=== PATIENT | female | born 1945 | race Caucasian/White ===

== ENCOUNTER 2016-11-04 15:20 | Inpatient (IN) | payer OTHER ==
[~2016-11-04] VITALS: Ht 154.9 cm; Wt 52.2 kg
[2016-11-04] VITALS (13 sets, daily range): BP systolic 76–133; BP diastolic 43–104
--- NOTE | ~2016-11-04 | CNG ---
[facility] [address] [place] [address] CYTO-NONGYN REPORT PROCEDURE Name: ROSEANNA MAJANOEN Room #: 243-P ADM IN M.R.#: [id number] Admission: 11/04/16 Date of : 45 Discharge: Report #: [id number] Path Case #: [id number] CYTOPATHOLOGY REPORT COLLECTION DATE: 11/12/2016 RECEIVED DATE: 11/12/2016 SUBMITTING PHYS: Dr. Evie Winslow OTHER PHYS: Dr. Stew Sheth CLINICAL HISTORY: SOA. SPECIMEN(S) RECEIVED: A.Pleural fluid * * * * * * * * * * * * FINAL DIAGNOSIS: A. Pleural fluid: - No malignant cells identified. Scattered highly reactive mesothelial cells are identified. PATHOLOGIST: Negrita Spann M.D. REPORT ELECTRONICALLY SIGNED BY: Negrita Spann M.D. DATE/TIME: 11/15/2016 16:15 * * * * * * * * * * * * GROSS PATHOLOGY: A. Pleural fluid: The specimen is submitted unfixed, labeled "Roseanna Majano". Received by the Cytology Department is 15 mL of cloudy yellow fluid. One ThinPrep slide and a cell block were prepared. (clt 11.12.2016) STENCIL MACHINE OPERATOR(S): GIULIANA Keene(ASCP) INITIAL CPT CODE(S): A; 21432, 71185 Professional services performed by [facility] at [place] [address] , [place] [address] Technical services performed by [facility] at [address] [place] [address]., [address], [place] [address]. [facility] [address] [place] [address], [address] [place] [address] PHONE: [phone] [facility] [address] [place] [address] CYTO-NONGYN REPORT PROCEDURE Name: ROSEANNA MAJANO Room #: 243-P ADM IN M.R.#: [id number] Admission: 11/04/16 Date of : 45 Discharge: Report #: [id number] Path Case #: [id number] DIRECTOR: Raffy Nickerson M.D. * * * END OF REPORT * * *
--- NOTE | ~2016-11-04 | HC ---
[facility] [place] [address] CONSULTATION Name: HAYDEE MAJANO Room #: 243-P ADM IN M.R.#: [id number] Admission: 11/04/16 Attend Phys: Stew Sheth MD Discharge: Date of : 45 Report #: [id number] THIS REPORT FOR: //name// CC: Evie Sheth DATE OF SERVICE: 11/04/2016 REASON FOR CONSULTATION: Pneumonia. IMPRESSION: 1. Community-acquired pneumonia. 2. Left greater than right effusion. 3. Constipation. 4. Lactic acidosis. 5. Acute kidney injury. 6. Protein-calorie malnutrition. 7. Normocytic anemia. 8. History of petit mal seizures. 9. History of osteoporosis. 10. Hyperlipidemia. 11. Incontinence. 12. Gastroesophageal reflux disease. 13. Depression. HOME MEDICATIONS: Included paroxetine, oxybutynin, Estrace and Crestor and old chart. PLAN: 1. ICU protocol. 2. Sepsis protocol. 3. PICC line placement and monitor pressures. 4. Tap effusion tonight. 5. Aerosol therapy. 6. Treat constipation. HISTORY OF PRESENT ILLNESS: This is a very pleasant 71-year-old female, was watching and window was opened and developed chills, went to the [employer] on Tuesday, too busy to see her and came in today. [place] she had a sore throat, decreased appetite, abdominal pain and developed a shortness of breath. No definite chest pains or palpitations. Positive fever. No definite headache. PAST MEDICAL HISTORY: GERD and osteoporosis. PAST SURGICAL HISTORY: Include hysterectomy, right knee surgery. [facility] [address] [place] [address] CONSULTATION Name: HAYDEE MAJANO Room #: 243-P ADM IN M.R.#: [id number] Admission: 11/04/16 Attend Phys: Stew Sheth MD Discharge: Date of : 45 Report #: [id number] MEDICATIONS: Carbamazepine, omeprazole and oxybutynin. ALLERGIES: To DARVON. SOCIAL HISTORY: Negative tobacco. Occasional ETOH. . REVIEW OF SYSTEMS: Headache, decreased appetite and nausea. No vomiting. Constipation and shortness of breath. No hemoptysis, hematemesis or hematochezia. Positive GERD. Positive muscle aches. No neck pain. PHYSICAL EXAMINATION: VITAL SIGNS: Temperature 97.9, pulse 83, respirations 20 and BP 83/50. EYES: Negative icterus. NECK: Trachea midline. LUNGS: Decreased breath sounds, left greater than right. HEART: Regular. ABDOMEN: Bowel sounds present, tender left lower quadrant. EXTREMITIES: Showed no clubbing, cyanosis or edema. NEUROLOGICAL: She is alert and oriented and has been remembered me from the past. RADIOLOGICAL DATA: Chest x-ray showed left greater than right infiltrate and effusion. CT abdomen showed large amount of stool in the proximal colon, left base densely opacified. LABORATORY DATA: White count 7.4, hemoglobin 11.6 and platelets 172. BUN 57 and creatinine 22. Calcium 7.9, albumin 3.0 and lactate 26. Influenza was negative. ABG 7.38, pCO2 of 31, pO2 72.5 and bicarbonate 18. INR 1.2 and PTT 31.5. <ELECTRONICALLY SIGNED> By: Evie Winslow MD 11/07/16 2147 1854 0733 Evie Winslow MD /nt
--- NOTE | ~2016-11-04 | O ---
[facility] [place] [address] OPERATIVE REPORT Name: HAYDEE MAJANO Room #: 243-P ADM IN M.R.#: [id number] Admission: 11/04/16 Attend Phys: Stew Sheth MD Discharge: Date of : 45 Report #: [id number] THIS REPORT FOR: //name// CC: Evie Sheth PROCEDURE: Emergent intubation. CLINICAL HISTORY: A 71-year-old white female with severe pneumonia, now with worsening respiratory distress and hypoxia. DESCRIPTION OF PROCEDURE: I was called to see the patient with mental status change, somnolence, severe tachypnea and hypoxia. The patient has been on noninvasive positive pressure ventilation for the last several days for severe pneumonia. She is not getting any better. She is tachypneic, appears fatigued. It was elected to proceed with intubation. DESCRIPTION OF PROCEDURE: The patient was given approximately 5 mL of Diprivan. A slide scope was then utilized to visualize the vocal cords. A 7.5-mm ET tube was then placed with a stylet without difficulty. The ET tube was secured at approximately 22 cm at the lip. Followup chest x-ray shows ET tube at the daisy. ET tube was withdrawn . Otherwise, the patient tolerated the procedure well. Her vital signs and blood pressure remained within normal range. <ELECTRONICALLY SIGNED> By: Derik Joy MD 11/09/16 1146 1254 1343 MD andreia Song
--- NOTE | ~2016-11-04 | O ---
[facility] [place] [address] OPERATIVE REPORT Name: HAYDEE MAJANO Room #: 243-P ADM IN M.R.#: [id number] Admission: 11/04/16 Attend Phys: Stew Sheth MD Discharge: Date of : 45 Report #: [id number] THIS REPORT FOR: //name// CC: Evie Sheth DATE OF SERVICE: 11/22/2016 PROCEDURE: Tracheostomy, CPT code 95371. PREOPERATIVE DIAGNOSES: 1. Pneumonia. 2. Respiratory failure with failure to wean from the vent. POSTOPERATIVE DIAGNOSES: 1. Pneumonia. 2. Respiratory failure with failure to wean from the vent. SURGEON: Barney Solorio MD. ANESTHESIA: General. ESTIMATED BLOOD LOSS: 5 mL. COMPLICATIONS: None. SPECIMENS: None. FINDINGS: The patient was found to have normal tracheal anatomy. INDICATIONS FOR PROCEDURE: The patient is a 71-year-old female who has a history of pneumonia and respiratory failure requiring mechanical ventilation. She has been unable to wean from the vent and a tracheostomy was desired because of her prolonged intubation. DESCRIPTION OF PROCEDURE: After informed consent was obtained, the patient was taken to the operating room and placed in the supine position. She underwent general anesthesia. She was prepped and draped in the usual fashion. A timeout was performed. The correct patient and procedure were identified. A 2 cm vertical incision was marked from the level of the cricoid in the midline and this was infiltrated with 1.5 mL of 1% lidocaine with 1:100,000 epinephrine. Once time was given for vasoconstriction to take effect, the skin was incised with a 15 blade scalpel. A subcutaneous fat was grasped with an Allis clamp and this was dissected free of the fascia using Bovie cautery. The fascia was then divided in the midline with the Bovie cautery and the strap muscles were also divided in the midline and retracted laterally. The isthmus was elevated using [facility] [address] [place] [address] OPERATIVE REPORT Name: HAYDEE MAJANO Room #: [facility]-P ADM IN M.R.#: [id number] Admission: 11/04/16 Attend Phys: Stew Sheth MD Discharge: Date of : 45 Report #: [id number] a hemostat and this was divided in the midline using Bovie cautery. This exposed the anterior tracheal wall. An incision was marked between the second and third tracheal rings. The trachea was then incised using 11 blade scalpel and an inferiorly based Rodolfo flap was developed using the 11 blade and heavy curved Delarosa scissors. Following this, anesthesia withdrew the endotracheal tube and a size 6 DCT tracheostomy tube was placed into the trachea. The patient was hooked up to the circuit and end tidal CO2s were confirmed. Hemostasis was then achieved with Bovie cautery and also packing with Surgicel. A trach was then secured with 2-0 nylon sutures, 1 in each corner and trach ties were placed. The patient was then turned back over the anesthesia service. She was successfully transferred back to the ICU in stable condition. All counts were reported as correct and there were no complications during the procedure. DISPOSITION: The patient will be returned to the ICU for trach care and weaning. By: 1148 1239 Barney Solorio MD /nt
--- NOTE | ~2016-11-04 | HC ---
[facility] [place] [address] CONSULTATION Name: HAYDEE MAJANO Room #: 243-P [facility] IN M.R.#: [id number] Admission: 11/04/16 Attend Phys: Stew Sheth MD Discharge: Date of : 45 Report #: [id number] THIS REPORT FOR: //name// CC: Evie Sheth REASON FOR CONSULTATION: I was asked to evaluate concerning pneumonia and septic shock. HISTORY OF PRESENT ILLNESS: The patient was a 71-year-old who had the acute onset of rigors, fever, left chest pain with onset 3 days ago. She continued to have pain with minimal cough, no sputum production. She presented to a walk-in clinic yesterday and was sent to the Emergency Room. She had temperature of 103 degrees. REVIEW OF SYSTEMS: Notes no headache, pharyngitis symptoms, sinusitis symptoms, nausea, vomiting, diarrhea, dysuria, frequency, flank pain, rash, arthritis. PAST MEDICAL HISTORY: Gastroesophageal reflux, osteoporosis, hysterectomy, right knee surgery, seizure disorder, depression, stress urge incontinence, hyperlipidemia. ALLERGIES: PREMARIN, DERMABOND. MEDICATIONS: Tegretol, Crestor, esterase, omeprazole, oxybutynin, paroxetine. The patient states no antibiotics prior to her admission, although on her ER report, there was prednisone and cephalexin identified. FAMILY HISTORY: Noncontributory. SOCIAL HISTORY: Nonsmoker, no significant alcohol intake. She had been vaccinated for influenza and pneumonia. REVIEW OF SYSTEMS: As noted above. PHYSICAL EXAMINATION: VITAL SIGNS: Currently afebrile, blood pressure stable on low dose Levophed. CVP was 9-10 range. She is on 4 liters of oxygen per nasal cannula. GENERAL: She was alert and cooperative. She was able to sit up in bed with minimal assist. HEENT: Unremarkable. NECK: Supple. No adenopathy. No rash or decubiti. LUNGS: Consolidation in the left mid chest and below. Crackles in the right base as well. No rub. CARDIOVASCULAR: Heart was regular, without appreciable murmur, gallop or rub. ABDOMEN: Soft, nontender, no hepatosplenomegaly or mass appreciated. EXTREMITIES: Unremarkable. [facility] [address] [place] [address] CONSULTATION Name: HAYDEE MAJANO Room #: [address] [place] [address] IN M.R.#: [id number] Admission: 11/04/16 Attend Phys: Stew Sheth MD Discharge: Date of : 45 Report #: [id number] NEUROLOGIC: Normal. LABORATORY STUDIES: Sodium 134, potassium 3.8, bicarbonate of 19, creatinine 1.6, lactate 1.6, AST 48, alkaline phosphatase 36, albumin of 2.3. MRSA screen negative. Hemoglobin 10.2, white count 10.8 with 25% bands, platelet count 135,000. Urinalysis 2+ protein, moderate bacteria. ABGs on 4 liters showed a pO2 of 65, pCO2 of 28, pH 7.41, CT scan of the abdomen showed consolidation in the left lung with associated effusion. An attempt at needle aspiration had failed last evening. Urine antigen positive for Streptococcus pneumoniae. Blood cultures are pending. Influenza antigen negative. No sputum cultures have been obtained for the patient is unable to expectorate. IMPRESSION: Community-acquired pneumonia. I suspect Streptococcus pneumoniae, most likely with consolidated lung and I suspect pruritus with either a parapneumonic effusion or empyema. Onset of her symptoms was 4 days ago. Now with septic shock, acute renal failure. She has an associated anemia and left shift on her white count. PLAN: Would recommend continuing IV antibiotic therapy, full ICU support. She is going to have a dedicated CT scan of the chest and we will reevaluate the left chest process. I have discussed with nursing staff and pulmonary medicine. <ELECTRONICALLY SIGNED> By: Prashanth Crum MD 11/08/16 0904 0942 1334 Prashanth Crum MD /nt
--- NOTE | ~2016-11-04 | 2DMMODE ---
[facility] [place] [address] 2 D/M-MODE ECHOCARDIOGRAM Name: HAYDEE MAJANO Room #: 243-P [facility] IN M.R.#: [id number] Admission: 11/04/16 Attend Phys: Stew Sheth, Discharge: Date of : 45 Date of Service: 11/05/16 1359 Report #: [id number] THIS REPORT FOR: //name// APPROVED REPORT Study performed: 11/05/2016 13:10:48 EXAM: Comprehensive 2D, Doppler, and color-flow Echocardiogram Patient Location: Bedside Room #: 243 Blood Pressure: 97/44 mmHg HR: 89 bpm Rhythm: NSR Other Information Study Quality: Adequate Indications Dyspnea 2D Dimensions RVDd: 39.35 mm LVEF(%): 66.81 (>50%) IVSd: 9.16 (7-11mm) LVOT Diam: 18.76 (18-24mm) LVDd: 42.91 mm PWd: 7.79 (7-11mm) Ascending Ao: 28.73 (22-36mm) LVDs: 27.17 (25-40mm) Aortic Root: 30.84 mm Lang's LVEF: 66.81 % Volumes Left Atrial Volume (Systole) Single Plane 4CH: 63.75 mL Single Plane 2CH: 62.22 mL LA ESV Index: 44.00 mL/m2 Aortic Valve AoV Peak Alexis.: 1.75 m/s AO Peak Gr.: 12.18 mmHg LVOT Max P.57 mmHg LVOT Max V: 1.18 m/s Mitral Valve E/A Ratio: 2.8 MV Decel. Time: 146.67 ms [facility] [address] [place] [address] 2 D/M-MODE ECHOCARDIOGRAM Name: HAYDEE MAJANO Room #: [address] [place] [address] IN ..#: [id number] Admission: 11/04/16 Attend Phys: Stew Sheth, Discharge: Date of : 45 Date of Service: 11/05/16 1359 Report #: [id number] MV E Max Alexis.: 1.05 m/s MV A Alexis.: 0.38 m/s MV PHT: 42.53 ms Pulmonary Valve PV Peak Alexis.: 0.93 m/s PV Peak Gr.: 3.50 mmHg Tricuspid Valve TR Peak Alexis.: 3.85 m/s RAP Estimate: 10.00 mmHg TR Peak Gr.: 59.24 mmHg RVSP: 69.00 mmHg Left Ventricle The left ventricle is normal size. There is normal LV segmental wall motion. There is normal left ventricular wall thickness. Left ventricular systolic function is normal. LVEF is 50-55%. Grade III - reversible restrictive diastolic dysfunction. Right Ventricle The right ventricle is normal size. The right ventricular systolic function is normal. Atria Left atrium is moderately dilated. Right atrium is mildly dilated. Aortic Valve The aortic valve is normal in structure. Trace aortic regurgitation. There is no aortic valvular stenosis. Mitral Valve The mitral valve is normal in structure. Moderate mitral regurgitation. Eccentric jet noted. Tricuspid Valve The tricuspid valve is normal in structure. There is moderate tricuspid regurgitation. The right atrial pressure is estimated at 10 mmHg. There is moderate-severe pulmonary hypertension with an estimated PAP of 69mmHg. Pulmonic Valve The pulmonary valve is normal in structure. Trace pulmonic regurgitation. Great Vessels The aortic root is normal in size. The ascending aorta is normal in size. IVC is dilated and collapses <50% with [facility] [address] [place] [address] 2 D/M-MODE ECHOCARDIOGRAM Name: HAYDEE MAJANO Room #: [facility] IN .R.#: [id number] Admission: 11/04/16 Attend Phys: Stew Sheth, Discharge: Date of : 45 Date of Service: 11/05/16 1359 Report #: [id number] inspiration. Pericardium There is no pericardial effusion. <Conclusion> Left ventricular systolic function is normal. There is normal LV segmental wall motion. Biatrial enlargement LVEF is 50-55%. Grade III - reversible restrictive diastolic dysfunction. The aortic valve is normal in structure, no stenosis, trace aortic regurgitation. The mitral valve is normal in structure. Moderate mitral regurgitation. Eccentric jet noted. There is moderate-severe pulmonary hypertension with an estimated PAP of 70 mmHg. There is no pericardial effusion. <ELECTRONICALLY SIGNED> By: Anderson Vernon MD, FACC 11/05/16 1359 1359 1359 Anderson Vernon MD, FACC /INF
--- NOTE | ~2016-11-04 | P ---
[facility] [place] [address] PROCEDURE REPORT Name: HAYDEE MAJANO Room #: 462-P ADM IN M.R.#: [id number] Admission: 11/04/16 Attend Phys: Stew Sheth MD Discharge: Date of : 45 Report #: [id number] THIS REPORT FOR: //name// CC: Evie Sheth DATE OF SERVICE: 11/23/2016 PROCEDURE: Upper endoscopy with percutaneous endoscopic gastrostomy tube placement. LOCATION: [facility]. DATE OF SERVICE: 11/23/2016. PROCEDURE LOCATION: Procedure was performed in room 243 in the intensive care unit at [facility]. INDICATIONS: Malnutrition. The patient was vent dependent and had a tracheostomy tube placed on 11/22/2016. GI was consulted for PEG tube placement. She has been tolerating tube feeds without any difficulty. DESCRIPTION OF PROCEDURE: The upper adult endoscope Fujinon was introduced through the esophagus into the stomach and into the second portion of duodenum and withdrawn closely for inspection. There were few small gastric polyps identified and a small hiatal hernia, but otherwise was without abnormality. Normal esophagus and normal duodenum. A 24[place] percutaneous endoscopic gastrostomy tube was placed. The body of the stomach was transilluminated, and the trocar was then introduced without difficulty. The wire was grasped with the snare and withdrawn. Then, the 24[place] gastrostomy tube was then pulled through into the stomach and secured with the bumper. There were no complications. RECOMMENDATIONS: To resume tube feedings in 6 hours. Okay to use right now for water and medications. Good PEG tube hygiene. <ELECTRONICALLY SIGNED> By: Bridger Allen MD 11/26/16 1103 1043 1909 Bridger Allen MD /nt
--- NOTE | ~2016-11-04 | H ---
[facility] [place] [address] HISTORY AND PHYSICAL Name: HAYDEE MAJANO Room #: 243-P ADM IN M.R.#: [id number] Admission: 11/04/16 Attend Phys: Stew Sheth MD Discharge: Date of : 45 Report #: [id number] THIS REPORT FOR: //name// CC: Evie Sheth DATE OF SERVICE: 11/05/2016 CHIEF COMPLAINT: Fever and shortness of air. HISTORY OF PRESENT ILLNESS: The patient is a 71-year-old female, well known to me, reports started feeling bad about 2 days ago with chills and shakes. She went to an urgent care yesterday and they thought she had UTI and sent her to the ER due to the high fever. She apparently had a fever of 103. She has been having trouble lying flat and having more shortness of breath as well in the last 48 hours. PAST MEDICAL HISTORY: Significant for reflux, osteoporosis, and seizure disorder. MEDICATIONS: Tegretol, Crestor, Estrace, oxybutynin, omeprazole, paroxetine, prednisone, and Keflex recently. ALLERGIES: To PREMARIN. SOCIAL HISTORY: Nonsmoker, occasional alcohol. No recreational drugs. REVIEW OF SYSTEMS: CONSTITUTIONAL: Positive for the fevers, chills, and malaise. HEENT: No headaches or visual changes. No sinus drainage or ear pain. No sore throat. CHEST: She has the shortness of breath and some slight cough. No sputum production. CARDIOVASCULAR: No palpations or tachycardia. GASTROINTESTINAL: No nausea or vomiting. No diarrhea. GENITOURINARY: No burning or frequency. EXTREMITIES: No new joint pains or swelling. SKIN: No new rashes or wounds. PHYSICAL EXAMINATION: VITAL SIGNS: In the ER, blood pressure was 76/43, her pulse was 100, her temperature was 36.6, she was 94% on 2 liters, but as she was in the ER, her O2 requirements went up to requiring up to 4 liters of nasal oxygen, her weight is 115 pounds. GENERAL: This morning, she is awake, alert, very pleasant and full historian. She is in no acute distress. Her mucous membranes are dry. [address] [address] HISTORY AND PHYSICAL Name: HAYDEE MAJANO Room #: [facility] ADM IN M.R.#: [id number] Admission: 11/04/16 Attend Phys: Stew Sheth MD Discharge: Date of : 45 Report #: [id number] NECK: Supple, without adenopathy, thyromegaly, or bruits. CHEST: Shows decreased breath sounds on the left with crackles on the right. CARDIOVASCULAR: She has a regular rhythm now with no murmurs. No S4. ABDOMEN: Soft. No focal tenderness. No rebound or guarding. Her bowel sounds are active. EXTREMITIES: Show no edema. Pulses are intact. SKIN: Turgor is intact. There are no wounds or rashes. LABORATORY EVALUATION: On initial presentation, her blood gas, pH 7.38, pCO2 of 31, pO2 72 on 4 liters, lactate level is 2.02. Sodium is 130, potassium 4.2, chloride 96, bicarb 22, BUN 57, creatinine is 2.2, and glucose is 98. Her calcium is 7.9. Her lactic acid on the chemistry panel is 2.6. Her AST 48, ALT 32, alk phos 36, albumin 3.0, and lipase 48. WBC is 7.4, hemoglobin 11.6, hematocrit 34.1, and platelet count 172. Urinalysis shows specific gravity of 1.025, 2+ protein, 1+ bilirubin, no reds, 0-5 whites, many squamous, some bacteria. Flu test was negative. Chest x-ray shows cardiomegaly with infiltrates and a large left effusion. CT of the abdomen shows dense opacification of the left base suggesting a large effusion, otherwise stool in the colon, but no abdominal masses or pelvic masses. ASSESSMENT: 1. Severe sepsis, started on Levophed, IV antibiotics, consulted pulmonary and infectious disease. She is maintaining her oxygen on 4 liters, she is still maintaining with her blood pressure being managed with the Levophed. We did try thoracentesis; however, unsuccessful. We will defer to pulmonology if they want to do a VAT procedure versus just treat empirically. She is holding at this time, however. The patient is a full code. 2. Acute kidney injury due to the sepsis. 3. Pneumonia triggering the sepsis, community-acquired, antibiotics as above. <ELECTRONICALLY SIGNED> By: Stew Sheth MD 11/05/16 1448 0728 1012 Stew Sheth MD /nt
--- NOTE | ~2016-11-04 | EEG ---
[facility] [place] [address] ELECTROENCEPHALOGRAM Name: HAYDEE MAJANO Room #: 462-P ADM IN M.R.#: [id number] Admission: 11/04/16 Attend Phys: Stew Sheth MD Discharge: Date of : 45 Report #: [id number] THIS REPORT FOR: //name// CC: Evie Sheth This patient has fluctuating mental status. EEG is being done to further evaluate that. EEG was done by placing the electrodes by standard 10-20 system of electrode placement. Both referential and sequential montages were used for recording. Background activity in this patient's EEG is about 7 Hz and 15 microvolts. There is a poorly formed background activity. Photic stimulation was unremarkable. Throughout the record, no active epileptiform activity was noticed. IMPRESSION: Moderately abnormal EEG because it is disorganized and poorly formed. That is a nonspecific abnormality, which can occur with encephalopathy, effect of psychotropic medication, dementia, etc. Clinical correlation is recommended. Thank you very much for this referral. <ELECTRONICALLY SIGNED> By: Maykel Ojeda MD 11/27/16 1227 1644 1850 Maykel Ojeda MD /nt
--- NOTE | ~2016-11-04 | EEG ---
[facility] [place] [address] ELECTROENCEPHALOGRAM Name: HAYDEE MAJANO Room #: 243-P [facility] IN M.R.#: [id number] Admission: 11/04/16 Attend Phys: Stew Sehth MD Discharge: Date of : 45 Report #: [id number] THIS REPORT FOR: //name// CC: Evie Sheth HISTORY: The patient is a 71-year-old female with altered mental status. The patient has a history of seizure disorder and the patient is currently in the intensive care unit with eye blinking. An EEG is requested for further evaluation. DESCRIPTION: The awake record consists of symmetric moderate amplitude 5 cycles per second activity which is diffuse and bilaterally symmetrical. During the recording, low to moderate amplitude, 20-25 cycles per second activity is seen, predominant over the frontocentral head regions. No focal abnormalities or epileptiform discharges are noted. Photic stimulation is non-activating. No focal abnormalities or epileptiform discharges are noted. IMPRESSION: This is an abnormal adult record demonstrating moderate diffuse cerebral dysfunction. No focal abnormalities or epileptiform discharges are noted. <ELECTRONICALLY SIGNED> By: Aide Melgar DO 11/15/16 0855 [id number] Aide Melgar DO /nt
[~2016-11-04 15:20] MED LIST: ALENDRONATE; CRESTOR; CRESTOR10 MG; DARVOCET-N 1001 EACH PO; ESTRACE2 MG PO; ESTRADIOL 1 MG T1 M1 PO; KEFLEX125 MG/5 M; OMEPRAZOLE; OMEPRAZOLE 20 M20 M1 PO; OXYBUTYNIN 5 MG5 M1; OXYBUTYNIN 5 MG5 M1 PO; PAROXETINE HCL30 MG PO; PREDNISONE 10 M10 M1; TEGRETOL XR100 MG PO; TEGRETOL XR400 MG PO
[2016-11-04 15:45] LABS: URINE BILIRUBIN 1+ (Negative); URINE BLOOD NEGATIVE (Negative); URINE GLUCOSE-RANDOM* NEGATIVE (Negative); URINE KETONES NEGATIVE (Negative); URINE NITRITE NEGATIVE (Negative); URINE PROTEIN (DIPSTICK) 2+ (Negative); URINE SPECIFIC GRAVITY 1.025 (1.003-1.035); URINE UROBILINOGEN 0.2 E.U./dl (0.2-1.0)
[2016-11-04 15:48] LABS: URINE COLOR DARK YELLOW
[2016-11-04 15:49] LABS: ICTOTEST (BILI CONFIRMATORY) Negative (Negative)
[2016-11-04 15:51] LABS: AMORPHOUS URATES Many /LPF (None Seen); CASTS None Seen /LPF (None Seen); SQUAMOUS >10 Many /LPF (0-3); URINE RBC None Seen /HPF (0-2); URINE WBC 0-5 Rare /HPF (0-5)
[2016-11-04 16:37] LABS: HEMATOCRIT 34.1 % (37.0-47.0); HEMOGLOBIN 11.6 gm/dL (12.0-15.0); MCHC 34.2 g/dL (28.0-37.0); MCV 93.7 fL (80.0-100.0); RBC 3.63 mil/uL (4.20-5.00); RDW 13.2 % (10.5-14.5); WBC 7.4 thou/uL (4.0-11.0)
[2016-11-04 16:46] LABS: CALCIUM 7.9 mg/dL (8.5-10.1); CREATININE 2.2 mg/dL (0.6-1.0); POTASSIUM 4.2 mmol/L (3.5-5.1)
[2016-11-04 16:51] LABS: TOTAL BILIRUBIN 0.5 mg/dL (<0.1-1.0); TOTAL PROTEIN 6.3 g/dL (6.4-8.2)
[2016-11-04 18:11] LABS: ABG SAMPLE TYPE ARTERIAL; HCO3 18.2 mmol/L (22.0-26.0); LACTATE 2.02 mmol/L (0.5-2.0); O2(CT) 14.3 mL/dL (15.0-23.0); O2Hb 93.2 % (92.0-98.0); PCO2 31.1 mmHg (35.0-45.0); PO2 72.5 mmHg (80.0-100.0); pH 7.384 (7.360-7.450); sO2 94.6 % (92.0-98.0); tCO2 19.1 mmol/L (24.0-30.0)
[2016-11-04 18:12] LABS: STICK SITE L.BRACHIAL
[2016-11-04 18:37] LABS: APTT 31.5 Seconds (24.5-32.8); INR 1.2; PROTIME 12.9 Seconds (9.3-11.4)
[2016-11-04 21:41] LABS: ABG SAMPLE TYPE VENOUS; BE(vivo) -7.6 mmol/L (-2 to +3); LACTATE 2.42 mmol/L (0.5-2.0); O2(CT) 10.8 mL/dL (15.0-23.0); PCO2 VENOUS 31.7 mmHg (41.0-51.0); PO2 VENOUS 36.4 mmHg (35.0-45.0); sO2 VENOUS 67.4 % (65.0-85.0)
[2016-11-04 21:42] LABS: ABG COMMENT RN DRAW; STICK SITE PICC
[2016-11-04 22:42] LABS: HEMATOCRIT 32.1 % (37.0-47.0); MANUAL DIFF YES; MCH 31.8 pg (26.0-34.0); MCHC 34.4 g/dL (28.0-37.0); MCV 92.6 fL (80.0-100.0); PLATELET COUNT 155 thou/uL (150-400); RBC 3.46 mil/uL (4.20-5.00); RDW 13.3 % (10.5-14.5); WBC 9.7 thou/uL (4.0-11.0)
[2016-11-04 22:50] LABS: CALCIUM 6.7 mg/dL (8.5-10.1); CREATININE 1.9 mg/dL (0.6-1.0); POTASSIUM 3.9 mmol/L (3.5-5.1)
[2016-11-04] MEDS ORDERED: RISEDRONATE SOD35 M1 PO (22:55)
[2016-11-04] MEDS ORDERED: CELLCEPT500 MG PO (22:56)
[2016-11-04] MEDS ORDERED: MOBIC15 MG PO (22:56)
[2016-11-04] MEDS ORDERED: LIPITOR 20 MG T20 M1 PO (22:58)
[2016-11-04 23:04] LABS: ABSOLUTE NEUTROPHILS 8.9 thou/uL (1.4-8.2); TOTAL CELL COUNT 100
[2016-11-04 23:05] LABS: ANISOCYTOSIS 1+
[2016-11-04 23:08] LABS: ABG SAMPLE TYPE VENOUS; BE(vivo) -7.2 mmol/L (-2 to +3); HCO3 17.4 mmol/L (22.0-26.0); LACTATE 2.08 mmol/L (0.5-2.0); O2(CT) 11.1 mL/dL (15.0-23.0); O2Hb VENOUS 68.9 (65.0-85.0); PCO2 VENOUS 32.3 mmHg (41.0-51.0); PO2 VENOUS 37.6 mmHg (35.0-45.0); sO2 VENOUS 69.5 % (65.0-85.0); tCO2 18.4 mmol/L (24.0-30.0)
[2016-11-04 23:09] LABS: STICK SITE LINE
[2016-11-05] VITALS (69 sets, daily range): BP systolic 68–149; BP diastolic 42–118
[2016-11-05 00:06] LABS: ABG SAMPLE TYPE VENOUS; BE(vivo) -6.6 mmol/L (-2 to +3); HCO3 17.8 mmol/L (22.0-26.0); LACTATE 1.95 mmol/L (0.5-2.0); O2(CT) 10.3 mL/dL (15.0-23.0); O2Hb VENOUS 65.8 (65.0-85.0); PCO2 VENOUS 31.9 mmHg (41.0-51.0); STICK SITE LINE; sO2 VENOUS 65.9 % (65.0-85.0); tCO2 18.8 mmol/L (24.0-30.0)
[2016-11-05 01:04] LABS: ABG SAMPLE TYPE VENOUS; BE(vivo) -7.2 mmol/L (-2 to +3); HCO3 17.3 mmol/L (22.0-26.0); LACTATE 2.22 mmol/L (0.5-2.0); O2(CT) 11.1 mL/dL (15.0-23.0); O2Hb VENOUS 71.4 (65.0-85.0); PO2 VENOUS 40.1 mmHg (35.0-45.0); STICK SITE LINE; sO2 VENOUS 73.5 % (65.0-85.0); tCO2 18.3 mmol/L (24.0-30.0)
[2016-11-05 02:38] LABS: HEMOGLOBIN 10.2 gm/dL (12.0-15.0); MCH 31.7 pg (26.0-34.0); MCV 93.4 fL (80.0-100.0); PLATELET COUNT 135 thou/uL (150-400); RBC 3.22 mil/uL (4.20-5.00); RDW 13.2 % (10.5-14.5); WBC 10.8 thou/uL (4.0-11.0)
[2016-11-05 02:47] LABS: MANUAL DIFF YES
[2016-11-05 02:48] LABS: ALBUMIN 2.3 g/dL (3.4-5.0); CALCIUM 6.4 mg/dL (8.5-10.1); CREATININE 1.6 mg/dL (0.6-1.0); POTASSIUM 3.8 mmol/L (3.5-5.1); TOTAL BILIRUBIN 0.4 mg/dL (<0.1-1.0); TOTAL PROTEIN 5.1 g/dL (6.4-8.2)
[2016-11-05 03:25] LABS: ABG SAMPLE TYPE VENOUS; BE(vivo) -6.5 mmol/L (-2 to +3); LACTATE 1.93 mmol/L (0.5-2.0); O2(CT) 10.4 mL/dL (15.0-23.0); O2Hb VENOUS 67.6 (65.0-85.0); PCO2 VENOUS 32.4 mmHg (41.0-51.0); PO2 VENOUS 36.3 mmHg (35.0-45.0); STICK SITE LINE; sO2 VENOUS 68.1 % (65.0-85.0)
[2016-11-05 04:48] LABS: ABG SAMPLE TYPE VENOUS; BE(vivo) -5.6 mmol/L (-2 to +3); HCO3 18.2 mmol/L (22.0-26.0); LACTATE 1.63 mmol/L (0.5-2.0); O2(CT) 9.6 mL/dL (15.0-23.0); PCO2 VENOUS 29.7 mmHg (41.0-51.0); PO2 VENOUS 33.3 mmHg (35.0-45.0); sO2 VENOUS 65.4 % (65.0-85.0); tCO2 19.1 mmol/L (24.0-30.0)
[2016-11-05 04:49] LABS: STICK SITE LINE
[2016-11-05 05:02] LABS: ABG SAMPLE TYPE ARTERIAL; BE(vivo) -5.6 mmol/L (-2 to +3); HCO3 17.6 mmol/L (22.0-26.0); LACTATE 1.91 mmol/L (0.5-2.0); O2(CT) 16.2 mL/dL (15.0-23.0); O2Hb 92.2 % (92.0-98.0); PO2 65.7 mmHg (80.0-100.0); pH 7.416 (7.360-7.450); sO2 93.6 % (92.0-98.0); tCO2 18.5 mmol/L (24.0-30.0)
[2016-11-05 05:03] LABS: STICK SITE L.BRACHIAL
[2016-11-05 05:13] LABS: ABSOLUTE NEUTROPHILS 10.3 thou/uL (1.4-8.2); METAMYELOCYTES 3 %; TOTAL CELL COUNT 100
[2016-11-05 16:09] LABS: IgA 269 mg/dL (64-422); IgG 646 mg/dL (700-1600); IgM 48 mg/dL (26-217)
[2016-11-05 18:11] LABS: HIV ANTIBODY Non Reactive (Non Reactive)
[2016-11-06] VITALS (75 sets, daily range): BP systolic 80–165; BP diastolic 43–126
[2016-11-06 04:36] LABS: HEMATOCRIT 28.6 % (37.0-47.0); HEMOGLOBIN 9.5 gm/dL (12.0-15.0); MCH 31.2 pg (26.0-34.0); MCHC 33.3 g/dL (28.0-37.0); MCV 93.8 fL (80.0-100.0); PLATELET COUNT 112 thou/uL (150-400); RBC 3.04 mil/uL (4.20-5.00); RDW 13.7 % (10.5-14.5); WBC 14.4 thou/uL (4.0-11.0)
[2016-11-06 04:52] LABS: ALBUMIN 1.9 g/dL (3.4-5.0); CALCIUM 6.3 mg/dL (8.5-10.1); CREATININE 0.7 mg/dL (0.6-1.0); MAGNESIUM 1.5 mg/dL (1.8-2.4); POTASSIUM 3.8 mmol/L (3.5-5.1); TOTAL BILIRUBIN 0.4 mg/dL (<0.1-1.0); TOTAL PROTEIN 4.9 g/dL (6.4-8.2)
[2016-11-06 05:06] LABS: MANUAL DIFF YES
[2016-11-06 05:45] LABS: ABG SAMPLE TYPE ARTERIAL; BE(vivo) -6.5 mmol/L (-2 to +3); HCO3 17.6 mmol/L (22.0-26.0); LACTATE 1.41 mmol/L (0.5-2.0); O2(CT) 14.3 mL/dL (15.0-23.0); O2Hb 96.2 % (92.0-98.0); PCO2 30.5 mmHg (35.0-45.0); PO2 95.9 mmHg (80.0-100.0); sO2 97.3 % (92.0-98.0); tCO2 18.6 mmol/L (24.0-30.0)
[2016-11-06 05:46] LABS: Pressure Support 6 cm H20; STICK SITE L.BRACHIAL; TIDAL VOLUME 508 ml
[2016-11-06 07:53] LABS: ABSOLUTE NEUTROPHILS 13.8 thou/uL (1.4-8.2); TOTAL CELL COUNT 100
[2016-11-07] VITALS (63 sets, daily range): BP systolic 82–149; BP diastolic 41–87
[2016-11-07 03:55] LABS: HEMATOCRIT 32.1 % (37.0-47.0); HEMOGLOBIN 10.5 gm/dL (12.0-15.0); MCH 30.9 pg (26.0-34.0); MCHC 32.6 g/dL (28.0-37.0); MCV 94.8 fL (80.0-100.0); RBC 3.39 mil/uL (4.20-5.00); RDW 13.9 % (10.5-14.5); WBC 19.7 thou/uL (4.0-11.0)
[2016-11-07 04:08] LABS: CREATININE 0.7 mg/dL (0.6-1.0)
[2016-11-07 08:11] LABS: ABG SAMPLE TYPE ARTERIAL; BE(vivo) -14.7 mmol/L (-2 to +3); HCO3 12.2 mmol/L (22.0-26.0); LACTATE 1.04 mmol/L (0.5-2.0); O2(CT) 14.4 mL/dL (15.0-23.0); O2Hb 88.5 % (92.0-98.0); PCO2 32.4 mmHg (35.0-45.0); PO2 65.6 mmHg (80.0-100.0); sO2 88.5 % (92.0-98.0); tCO2 13.2 mmol/L (24.0-30.0)
[2016-11-07 08:12] LABS: STICK SITE L.RADIAL; pH 7.195 (7.360-7.450)
[2016-11-07 11:34] LABS: ABG SAMPLE TYPE ARTERIAL; BE(vivo) -12.1 mmol/L (-2 to +3); HCO3 13.4 mmol/L (22.0-26.0); LACTATE 1.07 mmol/L (0.5-2.0); O2Hb 92.8 % (92.0-98.0); sO2 93.4 % (92.0-98.0); tCO2 14.2 mmol/L (24.0-30.0)
[2016-11-07 11:35] LABS: STICK SITE L.RADIAL; pH 7.281 (7.360-7.450)
[2016-11-07 11:36] LABS: ABG COMMENT A/C TOTAL RR 38; TIDAL VOLUME 500 ml
[2016-11-08] VITALS (20 sets, daily range): BP systolic 98–125; BP diastolic 44–61
[2016-11-08 06:05] LABS: HEMATOCRIT 29.2 % (37.0-47.0); HEMOGLOBIN 9.6 gm/dL (12.0-15.0); MCH 30.6 pg (26.0-34.0); MCHC 32.8 g/dL (28.0-37.0); MCV 93.1 fL (80.0-100.0); RBC 3.14 mil/uL (4.20-5.00); RDW 14.1 % (10.5-14.5); WBC 16.7 thou/uL (4.0-11.0)
[2016-11-08 06:07] LABS: CALCIUM 6.5 mg/dL (8.5-10.1); CREATININE 0.6 mg/dL (0.6-1.0); POTASSIUM 3.3 mmol/L (3.5-5.1)
[2016-11-08 09:23] LABS: BUN 16 mg/dL (7-18); CHLORIDE 114 mmol/L (98-107); CO2 15 mmol/L (21-32); CREATININE 0.5 mg/dL (0.6-1.0); GLUCOSE 86 mg/dL (74-106); MAGNESIUM 1.7 mg/dL (1.8-2.4)
[2016-11-08 09:41] LABS: ANION GAP 22 mmol/L (7-16); SODIUM 151 mmol/L (136-145)
[2016-11-08 09:42] LABS: POTASSIUM 2.6 mmol/L (3.5-5.1)
[2016-11-08 09:57] LABS: CALCIUM < 5.0 mg/dL (8.5-10.1)
[2016-11-08 12:19] LABS: ALBUMIN 1.7 g/dL (3.4-5.0); CALCIUM 6.7 mg/dL (8.5-10.1); CREATININE 0.5 mg/dL (0.6-1.0); PHOSPHORUS 1.4 mg/dL (2.5-4.9); POTASSIUM 3.4 mmol/L (3.5-5.1)
[2016-11-08 15:14] LABS: MAGNESIUM 2.5 mg/dL (1.8-2.4); POTASSIUM 3.5 mmol/L (3.5-5.1)
[2016-11-09] VITALS (26 sets, daily range): BP systolic 86–110; BP diastolic 43–55
[2016-11-09 06:21] LABS: HEMATOCRIT 28.9 % (37.0-47.0); HEMOGLOBIN 9.7 gm/dL (12.0-15.0); MCH 31.1 pg (26.0-34.0); MCHC 33.7 g/dL (28.0-37.0); MCV 92.2 fL (80.0-100.0); PLATELET COUNT 87 thou/uL (150-400); RBC 3.14 mil/uL (4.20-5.00); RDW 14.3 % (10.5-14.5)
[2016-11-09 06:25] LABS: MANUAL DIFF YES
[2016-11-09 06:37] LABS: ALBUMIN 1.3 g/dL (3.4-5.0); CALCIUM 7.1 mg/dL (8.5-10.1); CREATININE 0.6 mg/dL (0.6-1.0); POTASSIUM 3.2 mmol/L (3.5-5.1); TOTAL BILIRUBIN 0.9 mg/dL (<0.1-1.0); TOTAL PROTEIN 4.7 g/dL (6.4-8.2)
[2016-11-09 07:41] LABS: ABG SAMPLE TYPE ARTERIAL; BE(vivo) -5.6 mmol/L (-2 to +3); HCO3 19.6 mmol/L (22.0-26.0); LACTATE 1.62 mmol/L (0.5-2.0); O2(CT) 14.7 mL/dL (15.0-23.0); O2Hb 96.5 % (92.0-98.0); PCO2 37.4 mmHg (35.0-45.0); PO2 103.7 mmHg (80.0-100.0); STICK SITE L.BRACHIAL; pH 7.338 (7.360-7.450); sO2 97.5 % (92.0-98.0); tCO2 20.8 mmol/L (24.0-30.0)
[2016-11-09 07:42] LABS: TIDAL VOLUME 500 ml
[2016-11-09 09:29] LABS: ABSOLUTE NEUTROPHILS 15.3 thou/uL (1.4-8.2); TOTAL CELL COUNT 100
[2016-11-09 09:30] LABS: ANISOCYTOSIS SLIGHT
[2016-11-10] VITALS (56 sets, daily range): BP systolic 88–134; BP diastolic 30–99
[2016-11-10 07:49] LABS: HEMATOCRIT 27.4 % (37.0-47.0); HEMOGLOBIN 9.1 gm/dL (12.0-15.0); MCH 30.7 pg (26.0-34.0); MCHC 33.2 g/dL (28.0-37.0); MCV 92.3 fL (80.0-100.0); RBC 2.96 mil/uL (4.20-5.00); WBC 16.5 thou/uL (4.0-11.0)
[2016-11-10 07:58] LABS: CALCIUM 6.8 mg/dL (8.5-10.1); CREATININE 0.5 mg/dL (0.6-1.0); POTASSIUM 4.1 mmol/L (3.5-5.1)
[2016-11-11] VITALS (60 sets, daily range): BP systolic 98–134; BP diastolic 37–96
[2016-11-11 04:47] LABS: ABG SAMPLE TYPE ARTERIAL; BE(vivo) -2.6 mmol/L (-2 to +3); HCO3 22.8 mmol/L (22.0-26.0); LACTATE 1.07 mmol/L (0.5-2.0); O2(CT) 16.9 mL/dL (15.0-23.0); O2Hb 94.4 % (92.0-98.0); PCO2 41.6 mmHg (35.0-45.0); PO2 77.6 mmHg (80.0-100.0); STICK SITE L.BRACHIAL; TIDAL VOLUME 450 ml; pH 7.356 (7.360-7.450)
[2016-11-11 08:52] LABS: CALCIUM 7.2 mg/dL (8.5-10.1); CREATININE 0.6 mg/dL (0.6-1.0); POTASSIUM 4.5 mmol/L (3.5-5.1)
[2016-11-11 09:32] LABS: HEMOGLOBIN 9.4 gm/dL (12.0-15.0); MCH 30.9 pg (26.0-34.0); MCHC 33.6 g/dL (28.0-37.0); MCV 91.8 fL (80.0-100.0); PLATELET COUNT 171 thou/uL (150-400); RBC 3.05 mil/uL (4.20-5.00); RDW 14.1 % (10.5-14.5); WBC 14.5 thou/uL (4.0-11.0)
[2016-11-11 09:34] LABS: MANUAL DIFF YES
[2016-11-11 10:11] LABS: ABSOLUTE NEUTROPHILS 11.9 thou/uL (1.4-8.2); ATYPICAL LYMPHS 1 %; METAMYELOCYTES 2 %; TOTAL CELL COUNT 100
[2016-11-11 10:12] LABS: ANISOCYTOSIS SLIGHT
[2016-11-11 12:29] LABS: URINE BILIRUBIN NEGATIVE (Negative); URINE BLOOD 1+ (Negative); URINE COLOR YELLOW; URINE GLUCOSE-RANDOM* NEGATIVE (Negative); URINE KETONES NEGATIVE (Negative); URINE LEUKOCYTES-REFLEX NEGATIVE (Negative); URINE PROTEIN (DIPSTICK) 2+ (Negative); URINE UROBILINOGEN 0.2 E.U./dl (0.2-1.0)
[2016-11-11 12:40] LABS: ALBUMIN 1.2 g/dL (3.4-5.0); DIRECT BILIRUBIN 0.3 mg/dL (<0.1-0.3); TOTAL BILIRUBIN 0.5 mg/dL (<0.1-1.0); TOTAL PROTEIN 4.6 g/dL (6.4-8.2)
[2016-11-11 13:25] LABS: SQUAMOUS 4-10 Moderate /LPF (0-3)
[2016-11-11 13:28] LABS: YEAST-REFLEX Present (None Seen)
[2016-11-11 13:29] LABS: CASTS None Seen /LPF (None Seen)
[2016-11-11 13:31] LABS: CRYSTALS None Seen /LPF (None Seen); URINE RBC 0-2 Rare /HPF (0-2); URINE WBC-REFLEX 0-5 Rare /HPF (0-5); WBC CLUMPS Few (None Seen)
[2016-11-11 15:59] LABS: ABG SAMPLE TYPE ARTERIAL; BE(vivo) -5.2 mmol/L (-2 to +3); HCO3 19.3 mmol/L (22.0-26.0); LACTATE 1.32 mmol/L (0.5-2.0); O2(CT) 13.7 mL/dL (15.0-23.0); O2Hb 95.8 % (92.0-98.0); PCO2 33.7 mmHg (35.0-45.0); PO2 86.2 mmHg (80.0-100.0); pH 7.375 (7.360-7.450); sO2 96.4 % (92.0-98.0); tCO2 20.3 mmol/L (24.0-30.0)
[2016-11-11 16:17] LABS: STICK SITE L.BRACHIAL; TIDAL VOLUME 450 ml
[2016-11-12] VITALS (23 sets, daily range): BP systolic 117–151; BP diastolic 43–100
[2016-11-12 05:38] LABS: HEMATOCRIT 26.9 % (37.0-47.0); MCH 30.5 pg (26.0-34.0); MCHC 33.4 g/dL (28.0-37.0); MCV 91.5 fL (80.0-100.0); RBC 2.94 mil/uL (4.20-5.00); RDW 13.8 % (10.5-14.5)
[2016-11-12 13:04] LABS: BF NUCLEATED CELLS 567; BF RBC 969
[2016-11-12 13:59] LABS: TOTAL VOLUME 50 mL
[2016-11-12 14:00] LABS: CLARITY HAZY; COLOR YELLOW
[2016-11-12 15:12] LABS: BF NEUTROPHILS 59; MANUAL DIFF YES
[2016-11-13] VITALS (35 sets, daily range): BP systolic 103–144; BP diastolic 45–86
[2016-11-13 05:18] LABS: ABG SAMPLE TYPE ARTERIAL; BE(vivo) 3.2 mmol/L (-2 to +3); HCO3 25.6 mmol/L (22.0-26.0); LACTATE 0.93 mmol/L (0.5-2.0); O2Hb 97.3 % (92.0-98.0); PCO2 30.5 mmHg (35.0-45.0); pH 7.542 (7.360-7.450); tCO2 26.5 mmol/L (24.0-30.0)
[2016-11-13 05:19] LABS: FIO2 40 %; PO2 108 mmHg (80.0-100.0); STICK SITE L.BRACHIAL; TIDAL VOLUME 450 ml
[2016-11-13 05:24] LABS: HEMATOCRIT 25.4 % (37.0-47.0); HEMOGLOBIN 8.5 gm/dL (12.0-15.0); MCH 30.5 pg (26.0-34.0); MCHC 33.4 g/dL (28.0-37.0); MCV 91.3 fL (80.0-100.0); RBC 2.78 mil/uL (4.20-5.00); RDW 13.5 % (10.5-14.5); WBC 13.4 thou/uL (4.0-11.0)
[2016-11-13 05:31] LABS: CREATININE 0.5 mg/dL (0.6-1.0); MAGNESIUM 1.6 mg/dL (1.8-2.4); POTASSIUM 3.7 mmol/L (3.5-5.1)
[2016-11-14] VITALS (32 sets, daily range): BP systolic 109–141; BP diastolic 45–72
[2016-11-14 06:00] LABS: HEMATOCRIT 24.8 % (37.0-47.0); HEMOGLOBIN 8.4 gm/dL (12.0-15.0); MCH 30.9 pg (26.0-34.0); MCHC 33.7 g/dL (28.0-37.0); MCV 91.5 fL (80.0-100.0); RBC 2.71 mil/uL (4.20-5.00); RDW 13.1 % (10.5-14.5); WBC 15.9 thou/uL (4.0-11.0)
[2016-11-14 06:06] LABS: MANUAL DIFF YES; PLATELET COUNT 387 thou/uL (150-400)
[2016-11-14 06:12] LABS: CALCIUM 7.5 mg/dL (8.5-10.1); CREATININE 0.6 mg/dL (0.6-1.0); POTASSIUM 3.7 mmol/L (3.5-5.1)
[2016-11-14 07:31] LABS: ABSOLUTE NEUTROPHILS 13.8 thou/uL (1.4-8.2); PLATELET ESTIMATE NORMAL; TOTAL CELL COUNT 100
[2016-11-14 08:09] LABS: BODY FLUID ALBUMIN 0.7 g/dL (()); BODY FLUID AMYLASE 64 U/L (()); BODY FLUID GLUCOSE 147 mg/dL (()); BODY FLUID LDH 238 IU/L (()); BODY FLUID PROTEIN 1.4 g/dL (())
[2016-11-14 15:05] LABS: SMOOTH MUSCLE ANTIBODY 11 Units (0-19)
[2016-11-15] VITALS (24 sets, daily range): BP systolic 114–142; BP diastolic 42–70
[2016-11-15 04:28] LABS: HEMATOCRIT 22.6 % (37.0-47.0); HEMOGLOBIN 7.6 gm/dL (12.0-15.0); MCH 30.9 pg (26.0-34.0); MCHC 33.7 g/dL (28.0-37.0); MCV 91.6 fL (80.0-100.0); RBC 2.47 mil/uL (4.20-5.00); RDW 13.4 % (10.5-14.5); WBC 15.2 thou/uL (4.0-11.0)
[2016-11-15 04:37] LABS: PLATELET COUNT 488 thou/uL (150-400)
[2016-11-15 04:38] LABS: MANUAL DIFF YES
[2016-11-15 04:48] LABS: CALCIUM 7.5 mg/dL (8.5-10.1); CREATININE 0.5 mg/dL (0.6-1.0)
[2016-11-15 05:20] LABS: ABG SAMPLE TYPE ARTERIAL; BE(vivo) 5.2 mmol/L (-2 to +3); LACTATE 0.98 mmol/L (0.5-2.0); O2(CT) 11.6 mL/dL (15.0-23.0); O2Hb 96.2 % (92.0-98.0); PCO2 33.6 mmHg (35.0-45.0); PO2 85.1 mmHg (80.0-100.0); pH 7.538 (7.360-7.450); sO2 97.4 % (92.0-98.0)
[2016-11-15 05:21] LABS: STICK SITE R.RADIAL; TIDAL VOLUME 450 ml
[2016-11-15 08:30] LABS: ABSOLUTE NEUTROPHILS 12.6 thou/uL (1.4-8.2); METAMYELOCYTES 1 %; TOTAL CELL COUNT 100
[2016-11-15 08:31] LABS: ANISOCYTOSIS SLIGHT
[2016-11-16] VITALS (24 sets, daily range): BP systolic 125–147; BP diastolic 50–76
[2016-11-17] VITALS (24 sets, daily range): BP systolic 106–155; BP diastolic 43–72
[2016-11-17 08:42] LABS: HEMATOCRIT 25.2 % (37.0-47.0); HEMOGLOBIN 8.3 gm/dL (12.0-15.0); MCHC 32.9 g/dL (28.0-37.0); MCV 91.2 fL (80.0-100.0); RBC 2.77 mil/uL (4.20-5.00); RDW 13.1 % (10.5-14.5); WBC 21.1 thou/uL (4.0-11.0)
[2016-11-17 08:46] LABS: CALCIUM 8.2 mg/dL (8.5-10.1); CREATININE 0.5 mg/dL (0.6-1.0); POTASSIUM 4.6 mmol/L (3.5-5.1)
[2016-11-18] VITALS (36 sets, daily range): BP systolic 76–153; BP diastolic 33–107
[2016-11-18 20:29] LABS: HEMATOCRIT 22.5 % (37.0-47.0); HEMOGLOBIN 7.4 gm/dL (12.0-15.0); MCH 30.1 pg (26.0-34.0); MCHC 33.1 g/dL (28.0-37.0); RBC 2.47 mil/uL (4.20-5.00); RDW 13.3 % (10.5-14.5); WBC 18.8 thou/uL (4.0-11.0)
[2016-11-18 20:39] LABS: CALCIUM 7.8 mg/dL (8.5-10.1); CREATININE 0.7 mg/dL (0.6-1.0); POTASSIUM 3.8 mmol/L (3.5-5.1)
[2016-11-19] VITALS (72 sets, daily range): BP systolic 82–140; BP diastolic 39–95
[2016-11-19 04:44] LABS: HEMATOCRIT 21.8 % (37.0-47.0); HEMOGLOBIN 7.3 gm/dL (12.0-15.0); MCH 30.7 pg (26.0-34.0); MCHC 33.5 g/dL (28.0-37.0); MCV 91.7 fL (80.0-100.0); RBC 2.38 mil/uL (4.20-5.00); RDW 13.3 % (10.5-14.5); WBC 15.8 thou/uL (4.0-11.0)
[2016-11-19 04:51] LABS: CALCIUM 7.9 mg/dL (8.5-10.1); CREATININE 0.7 mg/dL (0.6-1.0); POTASSIUM 3.7 mmol/L (3.5-5.1)
[2016-11-20] VITALS (27 sets, daily range): BP systolic 88–144; BP diastolic 36–80
[2016-11-21] VITALS (24 sets, daily range): BP systolic 100–153; BP diastolic 62–103
[2016-11-21 13:08] LABS: ABG COMMENT 1 HR CPAP TRIAL; ABG SAMPLE TYPE ARTERIAL; LACTATE 1.18 mmol/L (0.5-2.0); O2(CT) 12.9 mL/dL (15.0-23.0); O2Hb 96.4 % (92.0-98.0); PCO2 38.2 mmHg (35.0-45.0); PO2 97.4 mmHg (80.0-100.0); Pressure Support 8 cm H20; STICK SITE L.RADIAL; pH 7.451 (7.360-7.450); sO2 97.7 % (92.0-98.0); tCO2 27.2 mmol/L (24.0-30.0)
[2016-11-21 19:51] LABS: ABG SAMPLE TYPE ARTERIAL; BE(vivo) 3.2 mmol/L (-2 to +3); HCO3 27.8 mmol/L (22.0-26.0); LACTATE 0.75 mmol/L (0.5-2.0); O2Hb 95.9 % (92.0-98.0); PCO2 42.6 mmHg (35.0-45.0); PO2 89.6 mmHg (80.0-100.0); Pressure Support 6 cm H20; STICK SITE L.RADIAL; TIDAL VOLUME 395 ml; pH 7.433 (7.360-7.450); tCO2 29.1 mmol/L (24.0-30.0)
[2016-11-21 19:52] LABS: ABG COMMENT 4HR CPAP TRIAL
[2016-11-22] VITALS (56 sets, daily range): BP systolic 96–167; BP diastolic 45–130
[2016-11-22 05:30] LABS: ABG SAMPLE TYPE ARTERIAL; BE(vivo) 1.9 mmol/L (-2 to +3); HCO3 26.3 mmol/L (22.0-26.0); LACTATE 0.58 mmol/L (0.5-2.0); O2(CT) 12.4 mL/dL (15.0-23.0); O2Hb 95.9 % (92.0-98.0); PCO2 40.3 mmHg (35.0-45.0); PO2 87.7 mmHg (80.0-100.0); STICK SITE L.RADIAL; pH 7.433 (7.360-7.450); sO2 96.9 % (92.0-98.0); tCO2 27.6 mmol/L (24.0-30.0)
[2016-11-22 05:31] LABS: Pressure Support 6 cm H20
[2016-11-22 10:13] LABS: HEMATOCRIT 24.5 % (37.0-47.0); HEMOGLOBIN 8.2 gm/dL (12.0-15.0); MCHC 33.5 g/dL (28.0-37.0); MCV 92.4 fL (80.0-100.0); RBC 2.66 mil/uL (4.20-5.00); RDW 13.7 % (10.5-14.5); WBC 17.6 thou/uL (4.0-11.0)
[2016-11-22 10:20] LABS: CALCIUM 8.6 mg/dL (8.5-10.1); CREATININE 0.6 mg/dL (0.6-1.0); POTASSIUM 4.2 mmol/L (3.5-5.1)
[2016-11-22 10:28] LABS: PROTIME 9.8 Seconds (9.3-11.4)
[2016-11-23] VITALS (75 sets, daily range): BP systolic 93–160; BP diastolic 42–132
[2016-11-24 04:45] VITALS: BP 147/67
[2016-11-24 07:46] VITALS: BP 114/63
[2016-11-24 11:21] VITALS: BP 131/64
[2016-11-24 15:00] VITALS: BP 149/79
[2016-11-24 19:51] VITALS: BP 130/92
[2016-11-25 04:20] VITALS: BP 153/83
[2016-11-25 07:52] VITALS: BP 126/67
[2016-11-25 10:54] VITALS: BP 116/58
[2016-11-25 16:00] VITALS: BP 138/72
[2016-11-25 20:52] VITALS: BP 141/69
[2016-11-26 06:03] VITALS: BP 135/62
[2016-11-26 08:00] VITALS: BP 140/79
[2016-11-26 10:22] LABS: HEMATOCRIT 25.9 % (37.0-47.0); HEMOGLOBIN 8.6 gm/dL (12.0-15.0); MCHC 33.1 g/dL (28.0-37.0); MCV 93.6 fL (80.0-100.0); RBC 2.77 mil/uL (4.20-5.00); RDW 13.7 % (10.5-14.5); WBC 17.5 thou/uL (4.0-11.0)
[2016-11-26 10:38] LABS: ALBUMIN 2.1 g/dL (3.4-5.0); CALCIUM 8.4 mg/dL (8.5-10.1); CREATININE 0.5 mg/dL (0.6-1.0); POTASSIUM 4.2 mmol/L (3.5-5.1); TOTAL BILIRUBIN 0.2 mg/dL (<0.1-1.0)
[2016-11-26 11:10] VITALS: BP 151/80
[2016-11-26 15:37] VITALS: BP 120/62
[2016-11-26 19:59] VITALS: BP 128/67
[2016-11-27 04:25] VITALS: BP 115/61
[2016-11-27 08:03] VITALS: BP 129/65
[2016-11-27 12:32] VITALS: BP 139/72
[2016-11-27 17:29] VITALS: BP 119/53
[2016-11-27 17:32] VITALS: BP 126/81
[2016-11-27 20:01] VITALS: BP 140/54
[2016-11-28 05:21] VITALS: BP 121/51
[2016-11-28 07:41] VITALS: BP 121/59
[2016-11-28 11:30] VITALS: BP 117/58
[2016-11-28 15:17] VITALS: BP 115/55
[2016-11-28 20:00] VITALS: BP 1222/58
[2016-11-29 04:12] VITALS: BP 126/58
[2016-11-29 06:05] LABS: HEMATOCRIT 22.8 % (37.0-47.0); HEMOGLOBIN 7.6 gm/dL (12.0-15.0); MCH 31.2 pg (26.0-34.0); MCHC 33.2 g/dL (28.0-37.0); MCV 93.9 fL (80.0-100.0); RBC 2.43 mil/uL (4.20-5.00); RDW 14.3 % (10.5-14.5); WBC 11.9 thou/uL (4.0-11.0)
[2016-11-29 06:13] LABS: CALCIUM 8.8 mg/dL (8.5-10.1); CREATININE 0.6 mg/dL (0.6-1.0); POTASSIUM 4.2 mmol/L (3.5-5.1)
[2016-11-29 07:10] VITALS: BP 126/55
[2016-11-29 11:03] VITALS: BP 133/60
[2016-11-29] MEDS ORDERED: AUGMENTIN 875-1 EACH PO (12:34)
[2016-11-29] MEDS ORDERED: ALBUTEROL2.5 MG/0.5 INH (12:34)
[2016-11-29] MEDS ORDERED: CARBAMAZEP100 MG/5 M PO (12:35)
[2016-11-29] MEDS ORDERED: ACETAMINOPHEN325 M1 PO (12:35)
[2016-11-29] MEDS ORDERED: PROTONIX 440 MG/VIA2 IV PUSH (12:36)
[2016-11-29] MEDS ORDERED: LORAZEPAM 22 MG/1 ML IV PUSH (12:36)
[2016-11-29] MEDS ORDERED: ADULT TUSS100 MG/5 M PER TUBE (12:36)
== END 2016-11-29 15:47 | DRG 4 ==
LOC: ER 15:20 → ICU 20:45 → 4W 11-23 16:37
PROVIDERS: Family Medicine; Hospitalist; Internal Medicine Pulmonary Disease; Physician Assistant; Psychiatry & Neurology Neurology; Specialist; Student in an Organized Health Care Education/Training Program
PROC: 02H633Z Insertion of Infusion Device into Right Atrium, Percutaneous Approach (ICD-10-PCS; 2016-11-04)
PROC: 0BH17EZ Insertion of Endotracheal Airway into Trachea, Via Natural or Artificial Opening (ICD-10-PCS; 2016-11-07)
PROC: 5A1955Z Respiratory Ventilation, Greater than 96 Consecutive Hours (ICD-10-PCS; 2016-11-07)
PROC: B2141ZZ Fluoroscopy of Right Heart using Low Osmolar Contrast (ICD-10-PCS; 2016-11-12)
PROC: 0W993ZZ Drainage of Right Pleural Cavity, Percutaneous Approach (ICD-10-PCS; 2016-11-12)
PROC: BB4BZZZ Ultrasonography of Pleura (ICD-10-PCS; 2016-11-12)
PROC: 0B110F4 Bypass Trachea to Cutaneous with Tracheostomy Device, Open Approach (ICD-10-PCS; principal; 2016-11-22)
PROC: 0DH63UZ Insertion of Feeding Device into Stomach, Percutaneous Approach (ICD-10-PCS; 2016-11-23)
DX: A41.9 Sepsis, unspecified organism (principal); G92 Toxic encephalopathy; J15.4 Pneumonia due to other streptococci; J96.01 Acute respiratory failure with hypoxia; E43 Unspecified severe protein-calorie malnutrition; R65.21 Severe sepsis with septic shock; N17.9 Acute kidney failure, unspecified; J90 Pleural effusion, not elsewhere classified; I27.2 Other secondary pulmonary hypertension; Z68.21 Body mass index [BMI] 21.0-21.9, adult; D63.8 Anemia in other chronic diseases classified elsewhere; G40.909 Epilepsy, unspecified, not intractable, without status epilepticus; M19.90 Unspecified osteoarthritis, unspecified site; K21.9 Gastro-esophageal reflux disease without esophagitis; Z96.659 Presence of unspecified artificial knee joint; R32 Unspecified urinary incontinence; F41.9 Anxiety disorder, unspecified; Z79.899 Other long term (current) drug therapy; Z90.710 Acquired absence of both cervix and uterus; Z88.8 Allergy status to other drugs, medicaments and biological substances
CPT/HCPCS: 10047; 10078; 27000; 50101; 50386; 50398; 56525; 56526; 56638; 57006; 62110; 62900

== ENCOUNTER → 2017-03-30 | Outpatient (CLI) | payer OTHER ==
[~2017-03-30] MED LIST changes: +ACETAMINOPHEN325 M1 PO; +ADULT TUSS100 MG/5 M PER TUBE; +ALBUTEROL2.5 MG/0.5 INH; +AUGMENTIN 875-1 EACH PO; +CARBAMAZEP100 MG/5 M PO; +CELLCEPT500 MG PO; +LIPITOR 20 MG T20 M1 PO; +LORAZEPAM 22 MG/1 ML IV PUSH; +MOBIC15 MG PO; +PROTONIX 440 MG/VIA2 IV PUSH; +RISEDRONATE SOD35 M1 PO
== END ==
LOC: RAD 03-28 12:03
DX: Z12.31 Encounter for screening mammogram for malignant neoplasm of breast (principal)

== ENCOUNTER 2017-11-23 18:00 | Inpatient (IN) | payer OTHER ==
[~2017-11-23] VITALS: Ht 149.9 cm; Wt 49.9 kg
[2017-11-23 18:01] VITALS: BP 113/38
[2017-11-23] MEDS ORDERED: FOSAMAX 70 MG T70 MG PO (18:12)
[2017-11-23] MEDS ORDERED: LIPITOR 20 MG T20 M1 PO (18:13)
[2017-11-23] MEDS ORDERED: CARBAMAZEPINE400 M1 PO (18:13)
[2017-11-23] MEDS ORDERED: PAXIL10 MG PO (18:14)
[2017-11-23] MEDS ORDERED: TROSPIUM CHLORI20 MG PO (18:14)
[2017-11-23] MEDS ORDERED: OMEPRAZOLE20 M2 PO (18:14)
[2017-11-23 20:56] VITALS: BP 122/48
[2017-11-23 21:06] LABS: HEMATOCRIT 31.2 % (37.0-47.0); HEMOGLOBIN 10.5 gm/dL (12.0-15.0); MCH 32.2 pg (26.0-34.0); MCHC 33.8 g/dL (28.0-37.0); MCV 95.1 fL (80.0-100.0); RBC 3.28 mil/uL (4.20-5.00); RDW 12.8 % (10.5-14.5); WBC 10.4 thou/uL (4.0-11.0)
[2017-11-23 21:14] LABS: CALCIUM 8.5 mg/dL (8.5-10.1); CREATININE 0.9 mg/dL (0.6-1.0); POTASSIUM 3.9 mmol/L (3.5-5.1)
[2017-11-23 21:31] VITALS: BP 109/59
[2017-11-23 21:38] LABS: APTT 23.1 Seconds (24.5-32.8); PROTIME 10.1 Seconds (9.3-11.4)
[2017-11-24 01:51] LABS: URINE BILIRUBIN NEGATIVE (Negative); URINE BLOOD NEGATIVE (Negative); URINE CLARITY CLEAR; URINE COLOR YELLOW; URINE GLUCOSE-RANDOM* NEGATIVE (Negative); URINE KETONES TRACE (Negative); URINE LEUKOCYTES-REFLEX NEGATIVE (Negative); URINE NITRITE-REFLEX NEGATIVE (Negative); URINE PROTEIN (DIPSTICK) NEGATIVE (Negative); URINE SPECIFIC GRAVITY 1.015 (1.005-1.035); URINE UROBILINOGEN 0.2 E.U./dl (0.2-1.0)
[2017-11-24 05:13] VITALS: BP 95/46
[2017-11-24 08:05] VITALS: BP 90/46
[2017-11-24 17:07] VITALS: BP 111/52
[2017-11-24 20:13] VITALS: BP 112/55
[2017-11-25 06:55] VITALS: BP 109/57
[2017-11-25 12:45] VITALS: BP 109/57
[2017-11-25 19:47] VITALS: BP 104/55
[2017-11-26 07:50] VITALS: BP 113/51
[2017-11-26] MEDS ORDERED: HYDROCODON-ACE1 EAC7 PO (08:00)
== END 2017-11-26 11:40 | disposition home health service (06) | DRG 536 ==
LOC: ER 18:00 → 4N 20:28 → EROBS 20:28 → 4N 21:14 → SICU 11-24 19:00
PROVIDERS: Emergency Medicine; Family Medicine
DX: S32.9XXA Fracture of unspecified parts of lumbosacral spine and pelvis, initial encounter for closed fracture (principal); E44.0 Moderate protein-calorie malnutrition; N17.9 Acute kidney failure, unspecified; M81.0 Age-related osteoporosis without current pathological fracture; K21.9 Gastro-esophageal reflux disease without esophagitis; Z68.22 Body mass index [BMI] 22.0-22.9, adult; Z90.710 Acquired absence of both cervix and uterus; Z96.659 Presence of unspecified artificial knee joint; W01.0XXA Fall on same level from slipping, tripping and stumbling without subsequent striking against object, initial encounter; Y93.89 Activity, other specified; Y92.89 Other specified places as the place of occurrence of the external cause; Y99.8 Other external cause status; Z87.01 Personal history of pneumonia (recurrent); Z79.899 Other long term (current) drug therapy
CPT/HCPCS: 10091; 15002

== ENCOUNTER → 2018-04-11 | Outpatient (CLI) | payer OTHER ==
[~2018-04-11] MED LIST changes: +CARBAMAZEPINE400 M1 PO; +FOSAMAX 70 MG T70 MG PO; +HYDROCODON-ACE1 EAC7 PO; +OMEPRAZOLE20 M2 PO; +PAXIL10 MG PO; +TROSPIUM CHLORI20 MG PO
== END ==
LOC: RAD 04-05 01:11
DX: Z12.31 Encounter for screening mammogram for malignant neoplasm of breast (principal)

== ENCOUNTER 2019-07-03 19:24 | Inpatient (IN) | payer OTHER ==
[~2019-07-03] VITALS: Ht 154.9 cm; Wt 52.2 kg
[2019-07-03 19:34] VITALS: BP 136/45
[2019-07-03 19:46] LABS: URINE BLOOD 2+ (Negative); URINE CLARITY CLEAR; URINE COLOR YELLOW; URINE GLUCOSE-RANDOM* NEGATIVE (Negative); URINE KETONES TRACE (Negative); URINE LEUKOCYTES-REFLEX NEGATIVE (Negative); URINE NITRITE-REFLEX NEGATIVE (Negative); URINE PROTEIN (DIPSTICK) 2+ (Negative); URINE SPECIFIC GRAVITY >= 1.030 (1.005-1.035); URINE UROBILINOGEN 0.2 E.U./dl (0.2-1.0)
[2019-07-03 19:54] LABS: ICTOTEST (BILI CONFIRMATORY) Negative (Negative); URINE BILIRUBIN NEGATIVE (Negative)
[2019-07-03 20:01] LABS: AMORPHOUS URATES Moderate /LPF (None Seen); BACTERIA-REFLEX 1-9 Few /HPF (None Seen); HYALINE CASTS 0-3 Few /LPF (None Seen); SQUAMOUS None Seen /LPF (0-3); URINE RBC None Seen /HPF (0-2); URINE WBC-REFLEX 0-5 Rare /HPF (0-5)
[2019-07-03 20:02] LABS: ABSOLUTE NEUTROPHILS 6.4 thou/uL (1.4-8.2); BASOPHILS 0.2 % (0.0-2.0); HEMATOCRIT 31.5 % (37.0-47.0); HEMOGLOBIN 10.6 gm/dL (12.0-15.0); LYMPHOCYTES 6.1 % (24.0-44.0); MCH 33.2 pg (26.0-34.0); MCHC 33.6 g/dL (28.0-37.0); MONOCYTES 4.9 % (1.0-8.0); PLATELET COUNT 146 thou/uL (150-400); POLYS 88.8 % (36.0-66.0); RBC 3.18 mil/uL (4.20-5.00); RDW 12.6 % (10.5-14.5); WBC 7.2 thou/uL (4.0-11.0)
[2019-07-03 20:09] LABS: CALCIUM 8.5 mg/dL (8.5-10.1); CREATININE 0.9 mg/dL (0.6-1.0); POTASSIUM 3.1 mmol/L (3.5-5.1)
[2019-07-03 20:15] LABS: ALBUMIN 3.2 g/dL (3.4-5.0); TOTAL BILIRUBIN 0.5 mg/dL (<0.1-1.0); TOTAL PROTEIN 6.8 g/dL (6.4-8.2)
[2019-07-03 23:52] VITALS: BP 101/52
--- NOTE | 2019-07-04 02:12 | NUR ---
ADMIT FROM ED. LUNGS COARSE, O2 PER NC. AMBULATORY SBA, STRESS INCONTINENCE ASKED FOR PULLUP AND PROVIDED. RECEIVED IV FLUIDS AND IV ANTIBIOTICS IN ED. TEMP REMAINS. COUGH LOOSE NON PRODUCTIVE. AOX4, FULL CODE. PAGED FOR NEW ORDERS, HE WILL BE IN AM FOR FURTHER ORDERS.
[2019-07-04 04:24] VITALS: BP 102/65
[2019-07-04 07:49] VITALS: BP 107/49
[2019-07-04 15:08] VITALS: BP 108/47
[2019-07-04 19:07] VITALS: BP 103/51
--- NOTE | 2019-07-04 19:13 | NUR ---
PT LUNGS COARSE WITH NONPRODUCTIVE COUGH...O2 2L...DOES NOT WEAR HOME O2...
--- NOTE | 2019-07-05 03:09 | NUR ---
Patient making progress towards outcome goals. Oxygenation optimal with 2L/NC. IVfluids infusing. High fall risks, fall precautions in place. Blood sugars starting to trend upwards on Solumedrol, will endorse to report to Dr Sheth during rounds.
[2019-07-05 04:27] VITALS: BP 111/62
[2019-07-05 05:23] LABS: HEMOGLOBIN 9.6 gm/dL (12.0-15.0); MCH 33.3 pg (26.0-34.0); MCHC 33.1 g/dL (28.0-37.0); MCV 100.5 fL (80.0-100.0); RBC 2.89 mil/uL (4.20-5.00); RDW 12.8 % (10.5-14.5); WBC 8.1 thou/uL (4.0-11.0)
[2019-07-05 05:41] LABS: CALCIUM 7.9 mg/dL (8.5-10.1); CREATININE 0.7 mg/dL (0.6-1.0); POTASSIUM 4.8 mmol/L (3.5-5.1)
[2019-07-05 07:58] VITALS: BP 117/69
[2019-07-05 16:04] VITALS: BP 112/63
--- NOTE | 2019-07-05 18:21 | NUR ---
ASSUMED CARE OF PT AT 0700. PT AOX4 IN NO ACUTE DISTRESS. COARSE LUNG SOUNDS BILAT. ON 1L NC. WORSENING PNA ON XRAY. VITALS STABLE. SUGARS WELL CONTROLLED ON MED REGIMEN. PT ANXIOUS ABOUT HAVING TO BE HERE LONGER THAN TUESDAY. OTHERWISE VOICING NO CONCERNS. WILL CONT TO MONITOR. UNEVENTFUL ON TELEMETRY.
[2019-07-05 19:51] VITALS: BP 95/46
[2019-07-06] VITALS (9 sets, daily range): BP systolic 124–170; BP diastolic 54–104
--- NOTE | 2019-07-06 05:31 | NUR ---
resting quietly. she complains that the other patients are very noisey and have prevented her from sleeping tonight. gave her a tylenol for achiness and reassured her. careplan reviewed.
--- NOTE | 2019-07-06 14:27 | NUR ---
INITIAL ASSESSMENT: SW reviewed chart and opened case due to length of stay. Pt was admitted from home due to sepsis/pneumonia. Pt is currently on IV abx and O2. Therapy ordered today to evaluate pt for discharge needs. SW met with pt and spouse at bedside. Introduced role of SW. Pt is alert/orientated x 4. Pt reports they live at home. 1 step to enter the home. No steps inside. Prior to admission, pt was independent with ADLs. Pt has a cane and walker to use if needed. Pt has used [facility] in the past for HH services. Pt has been to [facility] in the past. Pt was not on O2 prior to admission. Pt's PCP is Dr. Sheth. No weekend discharge anticipated. party planner to fax referral to [facility] for review. Pt requests to use [facility] if needed at time of discharge. Pt will have [facility] Medicare Advantage PPO starting July 11, 2019. EVELINE faxed copy of cards to registration for review. Copy placed on pt's chart. EVELINE is following to assist as needed with discharge planning.
--- NOTE | 2019-07-06 14:33 | NUR ---
DISCHARGE PLANNING. PATIENT DISCHARGE PLAN IS TO HOME WITH HOME HEALTH SERVICES. ANTICIPATED DISCHARGE PLANNED FOR THE BEGINNING OF NEXT WEEK. PATIENT REFERRAL FAXED TO [facility] FOR HH NEEDS. SAUL/INTAKE NOTIFIED OF PATIENTS HH NEEDS AND ANTICIPATED DISCHARGE DATE. FOLLOWING.
--- NOTE | 2019-07-06 17:03 | NUR ---
Assumed care approx. 0700 this AM. Patient has been resting in bed most of the day as she complains of lack of sleep overnight; Dr. Sheth ordered melatonin for 2100 this evening. Patient up to BS when voiding. Patient remains on 1LNC. ACHS accuchecks completed with no insulin required. Pt at bedside to visit. No acute changes. Pt progressing toward plan of care goals.
[2019-07-07 03:20] VITALS: BP 118/58
--- NOTE | 2019-07-07 06:09 | NUR ---
Pt. stated she slept well during the night. O2 at 1L/NC .No respiratory distress though verbalized she gets short of breath with exertion but has gotten better. Afebrile. Up with assist to commode. Bed alarm on and she calls appropriately. Making progress towards care plan goals.
[2019-07-07 07:32] VITALS: BP 132/55
[2019-07-07 09:04] LABS: HEMATOCRIT 33.7 % (37.0-47.0); HEMOGLOBIN 10.9 gm/dL (12.0-15.0); MCHC 32.4 g/dL (28.0-37.0); RBC 3.4 mil/uL (4.20-5.00); RDW 13.2 % (10.5-14.5); WBC 11.3 thou/uL (4.0-11.0)
[2019-07-07 09:16] LABS: CALCIUM 8.9 mg/dL (8.5-10.1); CREATININE 0.8 mg/dL (0.6-1.0)
--- NOTE | 2019-07-07 11:55 | NUR ---
PT A&OX4, IV INTACT IN L ARM. AMBULATES WITH ASSIST X1. O2@1L PER NC. AMBULATED WITH PT THIS AM. PT ANXIOUS TIMES. CALL LIGHT W/I REACH BED ALARM ON. WILL CONT POC.
[2019-07-07 15:32] VITALS: BP 116/60
[2019-07-07 19:11] VITALS: BP 127/62
[2019-07-08 03:26] VITALS: BP 121/61
--- NOTE | 2019-07-08 04:59 | NUR ---
Pt. has slept well during the night. Tolerating room air well with no respiratory distress. Afebrile. Up with assist x1 to bedside commode. New IV placed on left FA. Denies any concern at this time. Making progress towards care plan goal.
[2019-07-08 06:51] VITALS: BP 114/53
[2019-07-08] MEDS ORDERED: RAYOS5 MG PO (08:53)
[2019-07-08 13:15] VITALS: BP 114/53
--- NOTE | 2019-07-08 19:22 | NUR ---
pt has meeting most of care plan , pt is on room air , pt's vs and o2sat are stable, pt finished her last IV abx , then DC home with home health at 1430pm, RN has giving DC teaching to patient and her . both understand well.
== END 2019-07-08 13:54 | disposition home health service (06) | DRG 193 ==
LOC: ER 19:24 → 3W 22:04 → EROBS 22:04 → 3W 23:50
PROVIDERS: Emergency Medicine; ADMIT Family Medicine
DX: J18.9 Pneumonia, unspecified organism (principal); J96.01 Acute respiratory failure with hypoxia; N17.9 Acute kidney failure, unspecified; E87.6 Hypokalemia; G40.909 Epilepsy, unspecified, not intractable, without status epilepticus; E78.5 Hyperlipidemia, unspecified; K21.9 Gastro-esophageal reflux disease without esophagitis; M81.0 Age-related osteoporosis without current pathological fracture; Z90.710 Acquired absence of both cervix and uterus; Z88.8 Allergy status to other drugs, medicaments and biological substances; Z79.899 Other long term (current) drug therapy
CPT/HCPCS: 10879

== ENCOUNTER → 2019-07-17 | Outpatient (CLI) | payer OTHER ==
[~2019-07-17] MED LIST changes: +RAYOS5 MG PO
== END ==
LOC: BC 10:41
DX: Z12.31 Encounter for screening mammogram for malignant neoplasm of breast (principal)

== ENCOUNTER 2020-04-07 09:16 | Emergency (ER) | payer OTHER ==
[~2020-04-07] VITALS: Ht 154.9 cm; Wt 49.9 kg
[2020-04-07 10:06] LABS: HEMATOCRIT 32.9 % (37.0-47.0); HEMOGLOBIN 11.4 gm/dL (12.0-15.0); MCH 33.3 pg (26.0-34.0); MCHC 34.6 g/dL (28.0-37.0); MCV 96.3 fL (80.0-100.0); RBC 3.42 mil/uL (4.20-5.00); RDW 12.1 % (10.5-14.5); WBC 10.6 thou/uL (4.0-11.0)
[2020-04-07 10:18] LABS: CREATININE 0.8 mg/dL (0.6-1.0); POTASSIUM 3.9 mmol/L (3.5-5.1)
[2020-04-07 10:27] LABS: DIRECT BILIRUBIN 0.1 mg/dL (<0.1-0.2); TOTAL BILIRUBIN 0.3 mg/dL (0.2-1.0); TOTAL PROTEIN 7.4 g/dL (6.4-8.2)
[2020-04-07] MEDS ORDERED: MELOXICAM15 MG PO (11:09)
[2020-04-07] MEDS ORDERED: VESICARE10 M1 PO (11:10)
[2020-04-07] MEDS ORDERED: FLAGYL500 M1 PO (11:57)
[2020-04-07] MEDS ORDERED: LEVOFLOXACIN750 MG PO (11:57)
[2020-04-07 12:27] VITALS: BP 121/52
== END 2020-04-07 12:27 | disposition home or self-care (01) ==
LOC: ER 09:16
PROVIDERS: Emergency Medicine
DX: K52.9 Noninfective gastroenteritis and colitis, unspecified (principal); K21.9 Gastro-esophageal reflux disease without esophagitis; Z90.710 Acquired absence of both cervix and uterus; Z79.899 Other long term (current) drug therapy; Z91.048 Other nonmedicinal substance allergy status

== ENCOUNTER 2020-04-10 11:09 | Inpatient (IN) | payer OTHER ==
[~2020-04-10] VITALS: Ht 154.9 cm; Wt 52.2 kg
[~2020-04-10 11:09] MED LIST changes: +FLAGYL500 M1 PO; +LEVOFLOXACIN750 MG PO; +MELOXICAM15 MG PO; +VESICARE10 M1 PO
[2020-04-10 11:10] VITALS: BP 113/44
[2020-04-10 11:40] LABS: ABSOLUTE NEUTROPHILS 8.5 thou/uL (1.4-8.2); BASOPHILS 0.2 % (0.0-2.0); EOSINOPHILS 0.7 % (0.0-3.0); HEMATOCRIT 33.5 % (37.0-47.0); HEMOGLOBIN 11.5 gm/dL (12.0-15.0); LYMPHOCYTES 5.4 % (24.0-44.0); MCH 32.9 pg (26.0-34.0); MCHC 34.2 g/dL (28.0-37.0); MCV 96.3 fL (80.0-100.0); MONOCYTES 8.4 % (1.0-8.0); PLATELET COUNT 324 thou/uL (150-400); POLYS 85.3 % (36.0-66.0); RBC 3.48 mil/uL (4.20-5.00); RDW 12.3 % (10.5-14.5)
[2020-04-10 11:55] LABS: CALCIUM 8.3 mg/dL (8.5-10.1); POTASSIUM 3.6 mmol/L (3.5-5.1)
[2020-04-10 12:02] LABS: ALBUMIN 2.9 g/dL (3.4-5.0); TOTAL BILIRUBIN 0.3 mg/dL (0.2-1.0); TOTAL PROTEIN 7.5 g/dL (6.4-8.2)
[2020-04-10 13:03] VITALS: BP 100/47
--- NOTE | 2020-04-10 13:14 | NUR ---
CAMILLA FLOREZ STATED HE DOES NOT BEEN BLOOD CULTURES DRAWN
--- NOTE | 2020-04-10 13:44 | EKG ---
[facility] [address] ELECTROCARDIOGRAM REPORT Name: HAYDEE MAJANO Room #: 170-6 ADM IN M.R.#: [id number] Admission: 04/10/20 Attend Phys: Stew Sheth MD Discharge: Date of : 45 Report #: [id number] THIS REPORT FOR: cc: Stew Sheth MD, Neal A. MD Santiago, Patrick MD [facility] ~ THIS REPORT FOR: //name// [facility] ED Test Date: 2020-04-10 Test Time: 11:30:15 Pat Name: HAYDEE MAJANO Department: Room: 170 Gender: F Gun Tester: cynthia : 1945 Requested By: Alex Art Order Number: [id number] MD: Dmitry Edward Measurements Intervals [place] Rate: 90 P: 58 OR: 151 QRS: 72 QRSD: 83 T: 34 QT: 356 QTc: 436 Interpretive Statements Sinus rhythm RSR' in V1 or V2, probably normal variant Compared to ECG 11/14/1995 09:27:00 RSR' in V1 or V2 now present Electronically Signed On 04-10-2020 13:44:28 CDT by Dmitry Edward [email or web address] <ELECTRONICALLY SIGNED> By: Dmitry Edward MD, FACC 04/10/20 1344 1130 1130 Dmitry Edward MD, FACC /EPI
--- NOTE | 2020-04-10 14:45 | NUR ---
UNABLE TO CONFIRM ALLERGIES. CALLED PHARMACY AND INFORMED THEM THAT DERMABOND IS THE ONLY PT'S ALLERGY.
[2020-04-10 14:58] VITALS: BP 101/42
[2020-04-10 15:15] VITALS: BP 119/46
--- NOTE | 2020-04-10 19:11 | NUR ---
Pt arrived to floor from emergency room at 1515 in stable condition. Admission hx,assessment and care plan completed.vss.Dr Sheth notified about pt admitted to floor.Order noted. Gi rounded on pt and informed this rn about pt going for flex sig in am.Covid 19 test completed and consent signed .Pt in isolation for presumptive c-diff.Report off to noc rn.Will continue to monitor.
[2020-04-10 20:00] VITALS: BP 106/64
--- NOTE | 2020-04-11 04:14 | NUR ---
ASSUMED CARE OF PT AT 1900HRS. PT AOX4 AND LETS NEEDS BE KNOWN. FALL PRECAUTION IN PLACE. PT DENIED PAIN, NAUSEA OR SOA. ASSESSMEMNT CHARTED. PT PLACED NPO AT HI FOR PROCEDURE IN THE AM. PT WAS ABLE TO GET COMFORTABLE AND SLEEP PART OF THE SHIFT. VSS AND NO S/S OF ACUTE DISTRESS. WILL CONTINUE TO MONITOR.
[2020-04-11 04:40] VITALS: BP 104/50
[2020-04-11 06:18] LABS: HEMATOCRIT 27.5 % (37.0-47.0); MCH 33.1 pg (26.0-34.0); MCHC 33.8 g/dL (28.0-37.0); MCV 97.9 fL (80.0-100.0); RBC 2.81 mil/uL (4.20-5.00); RDW 12.3 % (10.5-14.5); WBC 7.4 thou/uL (4.0-11.0)
[2020-04-11 06:28] LABS: HEMOGLOBIN 9.3 gm/dL (12.0-15.0)
[2020-04-11 06:47] LABS: ALBUMIN 2.2 g/dL (3.4-5.0); CALCIUM 7.4 mg/dL (8.5-10.1); CREATININE 0.7 mg/dL (0.6-1.0); POTASSIUM 3.4 mmol/L (3.5-5.1); TOTAL BILIRUBIN 0.2 mg/dL (0.2-1.0)
[2020-04-11 10:00] VITALS: BP 108/39
--- NOTE | 2020-04-11 10:14 | P ---
[facility] [place] [address] PROCEDURE REPORT Name: HAYDEE MAJANO Room #: 459-P ADM IN M.R.#: [id number] Admission: 04/10/20 Attend Phys: Stew Sheth MD Discharge: Date of : 45 Report #: [id number] THIS REPORT FOR: cc: Stew Sheth MD, Neal A. MD McElhinney, Christian C. MD ~ CC: Stew Sheth MD DATE OF SERVICE: 04/11/2020 PROCEDURE PERFORMED: Flexible sigmoidoscopy with biopsies. HISTORY OF PRESENT ILLNESS: The patient is a 74-year-old female with abdominal pain, diarrhea. Denies any blood in her stools, diarrhea has been going on for approximately 2-3 weeks, was evaluated initially in the Emergency Room, noted to have colitis on CT, placed on oral antibiotics, had continued symptoms; therefore returned. She had a fall recently as well. She is having multiple bowel movements per day. She does report some mild crampy abdominal pain. Again, denies any blood in her stools. Stool cultures including C. diff are pending at this time. COVID is negative. Plan is for flexible sigmoidoscopy. DESCRIPTION OF PROCEDURE: The risks and benefits of the procedure were explained to the patient, those risks including but not limited to bleeding, perforation and the risk of sedation. She understood these risks and gave informed consent. Sedation was given using propofol per anesthesia. Next, a digital rectal exam was initially performed, which was normal. Next, using a standard Olympus colonoscope, the scope was placed in the patient's anus and advanced under direct vision to the ascending colon. The overall prep was fairly good throughout. I was able to view that there was stool in the cecum and near the ileocecal valve, but the ileocecal valve appeared normal. As the scope was withdrawn in the ascending colon, multiple deep ulcerations were noted throughout the entire ascending, transverse and descending colon. Multiple biopsies were obtained. No evidence of bleeding. There was patchy erythema with some ulcerations in the sigmoid colon, but improved in appearance. The rectal mucosa was normal. The scope was then withdrawn and the procedure terminated. The patient tolerated the procedure well. IMPRESSION: Severe colitis with multiple deep ulcerations throughout the ascending colon extending into the descending colon, near the sigmoid. Multiple biopsies obtained. RECOMMENDATIONS: Await biopsy results to rule out the possibility of Crohn's disease, possible CMV or infectious etiology. Stool cultures are pending at this time. We will also obtain an ASCA and ANCA test, and will continue IV antibiotics at this time, diet as tolerated. [address] [address] PROCEDURE REPORT Name: HAYDEE MAJANO Room #: 459-P [facility] IN M.R.#: [id number] Admission: 04/10/20 Attend Phys: Stew Sheth MD Discharge: Date of : 45 Report #: [id number] Thank you for allowing me to participate in her care. <ELECTRONICALLY SIGNED> By: Tristian Cordon MD 04/11/20 1014 0857 0907 Tristian Cordon MD /nt
--- NOTE | 2020-04-11 15:53 | NUR ---
Assumed pt care at 7am.Pt in bed very anxious about going for flex sig. in gi lab this morning.Assessment completed.vss.Received call from gi lab,updates given and tap water enema to pt prior to leaving for gi lab at 0730.Pt returned to floor around 1000 in stable condition.Post vss.Pt tolerated lunch and meds.Piv restarted. here to visit and updates given.No verbal c/o at present.Pt in bed resting and watching tv.Will continue to monitor.
[2020-04-11 16:24] VITALS: BP 106/52
[2020-04-11 20:26] VITALS: BP 120/28; BP 120/88
--- NOTE | 2020-04-11 21:20 | NUR ---
PT IS C-DIFF NEGATIVE. ISOLATION DCed.
--- NOTE | 2020-04-12 05:24 | NUR ---
ASSUMED CARE OF PT AT 1900HRS. PT AOX4 AND LETS NEEDS BE KNOWN. FALL PRECAUTION IN PLACE. PT DENES PAIN, NAUSEA, OR SOA. ASSESSMENT CHARTED. ABX TREATMENT CONTINUED. PT WAS ABLE TO GET COMFORTABLE AND SLEEP PART OF THE SHIFT. VSS AND NO S/S OF ACUTE DISTRESS. WILL CONTINUE TO MONITOR.
[2020-04-12 06:08] LABS: CALCIUM 7.7 mg/dL (8.5-10.1); CREATININE 0.7 mg/dL (0.6-1.0); POTASSIUM 3.5 mmol/L (3.5-5.1)
[2020-04-12 07:44] LABS: HEMATOCRIT 28.1 % (37.0-47.0); HEMOGLOBIN 9.8 gm/dL (12.0-15.0); MCH 33.7 pg (26.0-34.0); MCV 96.3 fL (80.0-100.0); RBC 2.92 mil/uL (4.20-5.00); RDW 12.4 % (10.5-14.5); WBC 8.8 thou/uL (4.0-11.0)
[2020-04-12 08:36] VITALS: BP 120/88
--- NOTE | 2020-04-12 12:19 | NUR ---
Assumed pt care this am, temp slightly elevated medications given. Abulates with a cane, gait is stable just requires more time. No diarrhea has been noted for this shift. Seen by , liliana orders in. Completing IV abx for the am, DC instructions given to the pt, is at the bed side. POC followed with no signs or verbalizations of distress noted.
--- NOTE | 2020-04-16 13:08 | PATH ---
[facility] [address] [place] [address] PATHOLOGY RPT PROCEDURE Name: ROSEANNA MAJANO Room #: 459-P DIS IN M.R.#: [id number] Admission: 04/10/20 Date of : 45 Discharge: 04/12/20 Report #: [id number] Path Case #: [id number] [facility] Accession Number: [id number] . 01 Material submitted: . colon - COLITIS/ULCER BIOPSY R/O CROHNS,CMV,ISCHEMIA . 01 Clinical history: . COLITIS,FALL,DIARRHEA . 02 Diagnosis: Large intestine mucosa, colitis/ulcer, endoscopic biopsy: - Moderate to marked active colitis with few fragments compatible with ulceration, see comment. - Negative for dysplasia or malignancy. (IUV:tyrell; 04/15/2020) QMS 04/15/2020 1328 Local . 02 Comment: Examination shows a markedly expanded lamina propria with a lymphoplasmacytic infiltrate. There is marked surface epithelial inflammation, cryptitis, crypt abscess formation in addition to the fragments of granulation tissue suggestive of ulceration. Viral inclusions are not identified. Concern for CMV is noted and an immunohistochemical stain is ordered. The results of this immunohistochemical stain will be reported in an addendum to follow. Overall, the process involves all the fragments sampled with equal intensity. The differential diagnosis includes inflammatory bowel disease (Crohn's as well as ulcerative colitis), marked active colitis due to diverticulitis or an infectious-type of colitis. Changes suggestive of ischemic colitis are not identified. Please correlate clinically. (IUV:tyrell; 04/15/2020) . 02 Addendum: . This addendum is issued subsequent to reviewing a properly controlled CMV immunohistochemical stain performed on block A1. It shows no definite reactivity supporting lack of the viral inclusions. . The originally rendered interpretation remains unchanged. . (IUV:machine try out setter; 04/16/2020) . *This test was developed and its performance characteristics determined by [facility]. It has not been cleared or approved by the U.S. Food and Drug Administration. The FDA has determined that such clearance or approval is not necessary. This test is used for clinical purposes. It should not be regarded as investigational or for research. This laboratory is certified [address] [address] PATHOLOGY RPT PROCEDURE Name: ROSEANNA MAJANO Room #: 459-P DIS IN M.R.#: [id number] Admission: 04/10/20 Date of : 45 Discharge: 04/12/20 Report #: [id number] Path Case #: [id number] under the Clinical Laboratory Improvement Amendments of 1988 (CLIA) as qualified to perform high complexity clinical laboratory testing. MBR/04/16/2020 Addendum Electronically Signed by Negrita Spann MD, Pathologist . 02 Electronically signed: . Negrita Spann MD, Pathologist NPI- [id number] . 01 Gross description: . The specimen is received in formalin, labeled "Roseanna Fish, colitis/ulcer biopsy, R/O Crohn's, CMV, ischemia". Received are multiple segments of pale pratt soft tissue ranging in size from 0.2 to 0.6 cm in maximum dimensions. The specimen is submitted entirely in cassette A1. (CAA; 04/14/2020) QAC/QAC 04/14/2020 1331 Local . 02 Pathologist provided ICD-10: K52.9 . 02 CPT . 755419, [id number] Specimen Comment: A courtesy copy of this report has been sent to [phone], [phone] Specimen Comment: [id number] Specimen Comment: Report sent to / DR RICO Performed at: 01 [facility] [address] [place] [address] [address], [place], [place] [id number] MD Bryce Robin MD Phone: [phone] Performed at: [address] [facility] [address] [id number] MD Negrita Spann MD Phone: [phone]
== END 2020-04-12 14:31 | disposition home or self-care (01) | DRG 391 ==
LOC: ER 11:09 → EROBS 13:42 → 4W 13:42
PROVIDERS: Nurse Practitioner; Specialist; ADMIT Family Medicine; ATTEND Family Medicine
PROC: 0DBN8ZX Excision of Sigmoid Colon, Via Natural or Artificial Opening Endoscopic, Diagnostic (ICD-10-PCS; principal; 2020-04-11)
PROC: 0HQ0XZZ Repair Scalp Skin, External Approach (ICD-10-PCS; principal; 2020-04-11)
DX: K52.9 Noninfective gastroenteritis and colitis, unspecified (principal); E43 Unspecified severe protein-calorie malnutrition; K63.3 Ulcer of intestine; N17.9 Acute kidney failure, unspecified; K21.9 Gastro-esophageal reflux disease without esophagitis; Z20.828 Contact with and (suspected) exposure to other viral communicable diseases; Z96.659 Presence of unspecified artificial knee joint; M81.0 Age-related osteoporosis without current pathological fracture; Z90.710 Acquired absence of both cervix and uterus; Z87.01 Personal history of pneumonia (recurrent); Z79.2 Long term (current) use of antibiotics; Z79.899 Other long term (current) drug therapy; Z91.048 Other nonmedicinal substance allergy status; Z86.010 Personal history of colon polyps
CPT/HCPCS: 10040; 62110; 62900; 70005

== ENCOUNTER → 2020-07-22 | Outpatient (CLI) | payer OTHER | LOC: RAD 10:49 | PROVIDERS: ATTEND Family Medicine | DX: Z12.31 Encounter for screening mammogram for malignant neoplasm of breast (principal) ==

== ENCOUNTER 2020-12-19 10:29 | Emergency (ER) | payer OTHER ==
[~2020-12-19] VITALS: Ht 154.9 cm; Wt 49.9 kg
[2020-12-19 12:22] VITALS: BP 98/49
== END 2020-12-19 12:22 | disposition home or self-care (01) ==
LOC: ER 10:29
DX: S51.812A Laceration without foreign body of left forearm, initial encounter (principal); K21.9 Gastro-esophageal reflux disease without esophagitis; M81.0 Age-related osteoporosis without current pathological fracture; G89.29 Other chronic pain; M25.562 Pain in left knee; Z90.710 Acquired absence of both cervix and uterus; Z98.890 Other specified postprocedural states; W22.03XA Walked into furniture, initial encounter; Y93.89 Activity, other specified; Y92.89 Other specified places as the place of occurrence of the external cause; Y99.8 Other external cause status

== ENCOUNTER → 2021-07-31 | Outpatient (CLI) | payer OTHER | LOC: BC 13:17 | PROVIDERS: ATTEND Family Medicine | DX: Z12.31 Encounter for screening mammogram for malignant neoplasm of breast (principal) ==

== ENCOUNTER 2021-08-20 13:43 | Emergency (ER) | payer OTHER ==
[~2021-08-20] VITALS: Ht 154.9 cm; Wt 49.9 kg
[2021-08-20] MEDS ORDERED: MESALAMINE1.2 GM PO (13:53)
[2021-08-20 17:05] VITALS: BP 125/46
== END 2021-08-20 17:33 | disposition home or self-care (01) ==
LOC: ER 13:43
DX: S01.81XA Laceration without foreign body of other part of head, initial encounter (principal); S63.501A Unspecified sprain of right wrist, initial encounter; K21.9 Gastro-esophageal reflux disease without esophagitis; G40.909 Epilepsy, unspecified, not intractable, without status epilepticus; Z90.710 Acquired absence of both cervix and uterus; Z79.899 Other long term (current) drug therapy; Z88.8 Allergy status to other drugs, medicaments and biological substances; W20.8XXA Other cause of strike by thrown, projected or falling object, initial encounter; Y93.89 Activity, other specified; Y92.89 Other specified places as the place of occurrence of the external cause; Y99.8 Other external cause status